=== PATIENT | female | born 1945 | race Caucasian/White ===

== ENCOUNTER 2022-08-21 12:24 | Inpatient (IN) | payer MEDICARE ==
[2022-08-21 13:22] LABS: Basophils % (A) 0 %; Eosinophils # (A) 0.6 k/uL (0-0.7); Eosinophils % (A) 8 %; HCT 37.3 % (34.0-46.0); HGB 12.4 gm/dL (11.4-16.0); Lymphocytes # (A) 1.7 k/uL (1.0-4.8); Lymphocytes % (A) 21 %; MCHC 33.3 g/dL (31.0-37.0); MCV 93.2 fL (80.0-100.0); Mean Platelet Volume 7.6; Monocytes # (A) 0.5 k/uL (0-1.0); Monocytes % (A) 7 %; Neutrophils # (A) 4.9 k/uL (1.3-7.7); Neutrophils % (A) 62 %; Platelet Count 427 k/uL (150-450); RBC 4.01 m/uL (3.80-5.40); RDW 12.1 % (11.5-15.5); WBC 7.8 k/uL (3.8-10.6)
--- NOTE | 2022-08-21 13:29 | XR ---
EXAMINATION TYPE: XR chest 2V DATE OF EXAM: 08/21/2022 1:22 PM COMPARISON: Chest radiographs from 02/22/2020 TECHNIQUE: XR chest 2V Frontal and lateral views of the chest. CLINICAL INDICATION:Female, 77 years old with history of sob; FINDINGS: Lungs/Pleura: Prominent interstitial lung markings are seen scattered throughout the lungs with chani ening of the diaphragm and increased lucency of the lung apices. No evidence of focal consolidation, pneumothorax or pleural effusion. Pulmonary vascularity: Unremarkable. Heart/mediastinum: Cardiomediastinal silhouette is unremarkable. Musculoskeletal: Multiple level degenerative disc disease changes seen throughout the spine. IMPRESSION: 1. No acute cardiopulmonary disease process. 2. COPD changes.
[2022-08-21 13:33] LABS: Prothrombin Time 10.2 sec (9.0-12.0)
--- NOTE | 2022-08-21 13:33 | XR ---
EXAMINATION TYPE: XR foot complete RT DATE OF EXAM: 08/21/2022 1:25 PM INDICATION: Patient age:Female; 77 years old; Reason for study: infection; COMPARISON: None TECHNIQUE: The right foot was examined in the AP, oblique, and lateral projections. FINDINGS: No evidence of any acute osseous pathology. No evidence of soft tissue swelling. Joints are preserve d. No evidence of osseous erosion to suggest osteomyelitis. No subcutaneous lucencies suggests organi zing fluid collection. IMPRESSION: 1. No evidence of acute fracture. 2. No evidence of osseous erosion to suggest osteomyelitis. No subcutaneous gas visualized.
[2022-08-21 13:35] LABS: Albumin 3.8 g/dL (3.5-5.0); C Reactive Protein 3.6 mg/dL (<1.0); Calcium 9.8 mg/dL (8.4-10.2); Magnesium 1.8 mg/dL (1.6-2.3); Potassium 4.2 mmol/L (3.5-5.1); Total Bilirubin 0.3 mg/dL (0.2-1.3); Total Protein 8.3 g/dL (6.3-8.2)
[2022-08-21] MEDS ORDERED: MORPHINE SULFATE 2 MG/ML SYRINGE IVP ONE (13:45)
[2022-08-21] MEDS ORDERED: ONDANSETRON 4 MG/2 ML VIAL IVP STA (13:45)
[2022-08-21] MEDS ORDERED: IPRATROPIUM-ALBUTEROL 3 ML NEB INHALATION STA (13:53)
--- NOTE | 2022-08-21 13:57 | ED ---
Extremity Problem HPI - General Chief complaint: Extremity Problem,Nontraumatic Stated complaint: blk toe Time Seen by Provider: 08/21/22 12:44 Source: patient, RN notes reviewed Mode of arrival: ambulatory Limitations: no limitations - History of Present Illness Initial comments: 77-year-old female presents emergency department from podiatry's office for evaluation of necrotic toes. Patient has been having issues with her foot states that she has seen podiatry has small black dot on her big toe of her right foot but states has now worsened to majority of her first digit in her changes are second third. She was a former smoker. She has meant that she has shortness breath and increasing cough and cold-like symptoms. Patient is advised to come to the emergency department for admission secondary to worsening gangrene. - Related Data Allergies Allergy/AdvReac Type Severity Reaction Status Date / Time No Known Allergies Allergy Verified 08/21/22 12:35 Review of Systems ROS Statement: Those systems with pertinent positive or pertinent negative responses have been documented in the HPI. ROS Other: All systems not noted in ROS Statement are negative. Past Medical History Past Medical History: COPD, Hyperlipidemia, Hypertension, Pneumonia History of Any Multi-Drug Resistant Organisms: None Reported Past Surgical History: Joint Replacement Past Psychological History: Anxiety Smoking Status: Former smoker Past Alcohol Use History: None Reported Past Drug Use History: None Reported General Exam Limitations: no limitations General appearance: alert, in no apparent distress Head exam: Present: atraumatic, normocephalic, normal inspection Neck exam: Present: normal inspection, full ROM. Absent: tenderness, meningi smus, lymphadenopathy Respiratory exam: Present: wheezes. Absent: normal lung sounds bilaterally, respiratory distress, rales, rhonchi, stridor Cardiovascular Exam: Present: regular rate, normal rhythm, normal heart sounds. Absent: systolic murmur, diastolic murmur, rubs, gallop, clicks Neurological exam: Present: alert Course Vital Signs 08/21/22 08/21/22 12:31 14:08 Temperature 97.8 F Pulse Rate 76 72 Respiratory 20 18 Rate Blood Pressure 144/78 141/85 O2 Sat by Pulse 97 95 Oximetry Medical Decision Making - Medical Decision Making Was pt. sent in by a medical professional or institution (, PA, MAINTENANCE PAINTER, urgent care, hospital, or long-term...) When possible be specific @ -Forensics Team Director Dr. Harding Did you speak to anyone other than the patient for history (EMS, parent, family, police, friend...)? What history was obtained from this source @ -Family in the room providing past medical history and recent treatment Did you review nursing and triage notes (agree or disagree)? Why? @ -I reviewed and agree with nursing and triage notes Were old charts reviewed (outside hosp., previous admission, EMS record, old EKG, old radiological studies, urgent care reports/EKG's, long-term records)? Report findings @ -No old charts were reviewed Differential Diagnosis (chest pain, altered mental status, abdominal pain women, abdominal pain men, vaginal bleeding, weakness, fever, dyspnea, syncope, headache, dizziness, GI bleed, back pain, seizure, CVA, palpatations, mental health, musculoskeletal)? @ -Peripheral arterial disease, gangrene, osteomyelitis, cellulitis EKG interpreted by me (3pts min.). @ -None X-rays interpreted by me (1pt min.). @ -Chest x-ray 2 view no acute cardiopulmonary process, COPD changes, X-ray foot right no evidence of osteomyelitis no acute fracture CT interpreted by me (1pt min.). @ -None done U/S interpreted by me (1pt. min.). @ -None done What testing was considered but not performed or refused? (CT, X-rays, U/S, labs)? Why? @ -None What meds were considered but not given or refused? Why? @ -None Did you discuss the management of the patient with other professionals (professionals i.e. , PA, MAINTENANCE PAINTER, lab, RT, psych nurse, social worker school, regional sales director, teacher, security police officer, wrapper caser)? Give summary @ -Dr. Garcia with vascular evaluation, consult secondary to PAD and gangrenous changes Was smoking cessation discussed for >3mins.? @ -No Was critical care preformed (if so, how long)? @ -No Were there social determinants of health that impacted care today? How? (Homelessness, low income, unemployed, alcoholism, drug addiction, transportation, low edu. Level, literacy, decrease access to med. care, penitentiary, rehab)? @ -No Was there de-escalation of care discussed even if they declined (Discuss DNR or withdrawal of care, Hospice)? DNR status @ -No What co-morbidities impacted this encounter? (DM, HTN, Smoking, COPD, CAD, Cancer, CVA, ARF, Chemo, Hep., AIDS, mental health diagnosis, sleep apnea, morbid obesity)? @ -Smoking history Was patient admitted / discharged? Hospital course, mention meds given and route, prescriptions, significant lab abnormalities, going to OR and other pertinent info. @ -Admitted secondary to PAD with gangrene changes in fair outpatient treatment with podiatry patient be admitted with consult to vascular surgery Undiagnosed new problem with uncertain prognosis? @ -No Drug Therapy requiring intensive monitoring for toxicity (Heparin, Nitro, Insulin, Cardizem)? @ -No Were any procedures done? @ -No Diagnosis/symptom? @ -PAD, gangrene Acute, or Chronic, or Acute on Chronic? @ -Acute Uncomplicated (without systemic symptoms) or Complicated (systemic symptoms)? @ -Complicated Side effects of treatment? @ -No Exacerbation, Progression, or Severe Exacerbation? @ -No Poses a threat to life or bodily function? How? (Chest pain, [place], [place], pneumonia, PE, COPD, DKA, ARF, appy, cholecystitis, CVA, Diverticulitis, Homicidal, Suicidal, threat to staff... and all critical care pts) @ -No - Lab Data Result diagrams: 08/21/22 13:05 08/21/22 13:05 Lab Results 08/21/22 08/21/22 08/21/22 Range/Units 13:05 13:05 13:05 WBC 7.8 (3.8-10.6) k/uL RBC 4.01 (3.80-5.40) m/uL Hgb 12.4 (11.4-16.0) gm/dL Hct 37.3 (34.0-46.0) % MCV 93.2 (80.0-100.0) fL MCH 31.0 (25.0-35.0) pg MCHC 33.3 (31.0-37.0) g/dL RDW 12.1 (11.5-15.5) % Plt Count 427 (150-450) k/uL MPV 7.6 Neutrophils % 62 % Lymphocytes % 21 % Monocytes % 7 % Eosinophils % 8 % Basophils % 0 % Neutrophils # 4.9 (1.3-7.7) k/uL Lymphocytes # 1.7 (1.0-4.8) k/uL Monocytes # 0.5 (0-1.0) k/uL Eosinophils # 0.6 (0-0.7) k/uL Basophils # 0.0 (0-0.2) k/uL PT 10.2 (9.0-12.0) sec INR 1.0 (<1.2) APTT 32.0 H (22.0-30.0) sec Sodium 134 L (137-145) mmol/L Potassium 4.2 (3.5-5.1) mmol/L Chloride 97 L (98-107) mmol/L Carbon Dioxide 27 (22-30) mmol/L Anion Gap 10 mmol/L BUN 11 (7-17) mg/dL Creatinine 0.76 (0.52-1.04) mg/dL Est GFR (CKD-EPI)AfAm 89 (>60 ml/min/1.73 sqM) Est GFR (CKD-EPI)NonAf 77 (>60 ml/min/1.73 sqM) Glucose 105 H (74-99) mg/dL Plasma Lactic Acid Lloyd (0.7-2.0) mmol/L Calcium 9.8 (8.4-10.2) mg/dL Magnesium 1.8 (1.6-2.3) mg/dL Total Bilirubin 0.3 (0.2-1.3) mg/dL AST 26 (14-36) U/L ALT 14 (4-34) U/L Alkaline Phosphatase 112 (38-126) U/L C-Reactive Protein 3.6 H (<1.0) mg/dL Total Protein 8.3 H (6.3-8.2) g/dL Albumin 3.8 (3.5-5.0) g/dL 08/21/22 Range/Units 13:05 WBC (3.8-10.6) k/uL RBC (3.80-5.40) m/uL Hgb (11.4-16.0) gm/dL Hct (34.0-46.0) % MCV (80.0-100.0) fL MCH (25.0-35.0) pg MCHC (31.0-37.0) g/dL RDW (11.5-15.5) % Plt Count (150-450) k/uL MPV Neutrophils % % Lymphocytes % % Monocytes % % Eosinophils % % Basophils % % Neutrophils # (1.3-7.7) k/uL Lymphocytes # (1.0-4.8) k/uL Monocytes # (0-1.0) k/uL Eosinophils # (0-0.7) k/uL Basophils # (0-0.2) k/uL PT (9.0-12.0) sec INR (<1.2) APTT (22.0-30.0) sec Sodium (137-145) mmol/L Potassium (3.5-5.1) mmol/L Chloride (98-107) mmol/L Carbon Dioxide (22-30) mmol/L Anion Gap mmol/L BUN (7-17) mg/dL Creatinine (0.52-1.04) mg/dL Est GFR (CKD-EPI)AfAm (>60 ml/min/1.73 sqM) Est GFR (CKD-EPI)NonAf (>60 ml/min/1.73 sqM) Glucose (74-99) mg/dL Plasma Lactic Acid Lloyd 1.0 (0.7-2.0) mmol/L Calcium (8.4-10.2) mg/dL Magnesium (1.6-2.3) mg/dL Total Bilirubin (0.2-1.3) mg/dL AST (14-36) U/L ALT (4-34) U/L Alkaline Phosphatase (38-126) U/L C-Reactive Protein (<1.0) mg/dL Total Protein (6.3-8.2) g/dL Albumin (3.5-5.0) g/dL Disposition Clinical Impression: Gangrene of toe of right foot, PAD (peripheral artery disease) Disposition: ADMITTED IP TO THIS HOSP Condition: Fair Referrals: Yajaira Freeman MD [Primary Care Provider] - 1-2 days Time of Disposition: 13:57
[2022-08-21] MEDS ORDERED: NALOXONE 0.4 MG/ML 1 ML VIAL IV PRN (14:13)
[2022-08-21] MEDS ORDERED: ACETAMINOPHEN TAB 325 MG TAB PO PRN (14:13)
[2022-08-21] MEDS: IPRATROPIUM-ALBUTEROL 3 ML NEB INHALATION SCH ×2 (15:27→20:08)
[2022-08-21 16:27] LABS: Erythrocyte Sedimentation Rate 102 mm/hr (0-20)
[2022-08-21] MEDS ORDERED: NON FORMULARY DRUG (Umeclidinium Brm/Vilanterol Tr [Anoro Ellipta 62.5-25 Mcg Inh] 1 EACH INHALATION PRN (16:39)
[2022-08-21] MEDS ORDERED: ONDANSETRON ODT 4 MG TAB PO PRN (16:39)
[2022-08-21] MEDS: MULTIVITAMINS, THERA 1 EACH TAB PO SCH (17:42)
[2022-08-21] MEDS: METOCLOPRAMIDE 10 MG TAB PO SCH (17:42)
[2022-08-21] MEDS: ATORVASTATIN 40 MG TAB PO SCH (20:05)
[2022-08-21] MEDS: HYDROcodone/APAP 5-325MG 1 EACH TAB PO PRN (21:37)
[2022-08-21] MEDS: ALPRAZolam 0.25 MG TAB PO PRN (23:24)
[2022-08-22] MEDS: IPRATROPIUM-ALBUTEROL 3 ML NEB INHALATION SCH ×3 (00:59→08:35)
[2022-08-22] MEDS: HYDROcodone/APAP 5-325MG 1 EACH TAB PO PRN ×3 (01:29→22:41)
[2022-08-22] MEDS: METOCLOPRAMIDE 10 MG TAB PO SCH ×2 (08:25→17:45)
[2022-08-22] MEDS: FORMOTEROL FUMARATE 20 MCG/2 ML NEBU INHALATION SCH ×2 (08:35→20:00)
[2022-08-22 08:55] LABS: Basophils # (A) 0.06 X 10*3/uL (0.00-0.10); Basophils % (A) 0.7 %; Eosinophils # (A) 0.85 X 10*3/uL (0.04-0.35); Eosinophils % (A) 10.5 %; HCT 35.2 % (37.2-46.3); HGB 11.1 g/dL (12.0-15.0); Immature Grans, Automated 0.9 %; Lymphocytes # (A) 2.38 X 10*3/uL (0.90-5.00); Lymphocytes % (A) 29.4 %; MCH 30.6 pg (27.0-32.0); MCHC 31.5 g/dL (32.0-37.0); Mean Platelet Volume 10.7 fL (9.5-12.2); Monocytes # (A) 0.82 X 10*3/uL (0.20-1.00); Monocytes % (A) 10.1 %; NRBC Per 100 WBC 0 /100 WBCS (0.0-0.0); Neutrophils # (A) 3.92 X 10*3/uL (1.80-7.70); Neutrophils % (A) 48.4 %; Platelet Count 401 X 10*3/uL (140-440); RBC 3.63 X 10*6/uL (4.10-5.20); RDW 12.3 % (11.5-14.5)
[2022-08-22] MEDS: ONDANSETRON 4 MG/2 ML VIAL IVP PRN ×2 (08:55→16:43)
[2022-08-22] MEDS ORDERED: NON FORMULARY DRUG (Losartan/Hydrochlorothiazide [Hyzaar 100-12.5 Tablet] 1 EACH Tablet) PO SCH (09:00)
--- NOTE | 2022-08-22 09:26 | P.HPIM ---
History of Present Illness H&P Date: 08/21/22 Leanne Good, is a 77-year-old female patient of Dr. 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 Patient has reported that she's been dealing with issues with her foot for some time but has increased to her second and third toe over the past few months. Patient has past medical history of ex-smoker, COPD, hyperlipidemia, hypertension and pneumonia. Chest x-ray completed showing no acute cardiopulmonary disease COPD changes. Foot x-ray completed showing no evidence of acute fracture no evidence of osseous erosion to suggest osteomyelitis. Current vital signs temp 97.8, heart rate 59, respiratory 18, blood pressure 108/56 with pulse ox 93% on room air. At this time patient will be admitted patient started on IV kefzol. Vascular and infectious disease services will be consulted. Blood culture ordered Review of Systems Please refer to HPI otherwise unremarkable Past Medical History Past Medical History: COPD, Hyperlipidemia, Hypertension, Pneumonia History of Any Multi-Drug Resistant Organisms: None Reported Past Surgical History: Joint Replacement Past Psychological History: Anxiety Smoking Status: Former smoker Past Alcohol Use History: None Reported Past Drug Use History: None Reported Medications and Allergies Home Medications Medication Instructions Recorded Confirmed Type ALPRAZolam [Xanax] 0.25 mg PO BID PRN 08/21/22 08/21/22 History Albuterol Nebulized [Ventolin 2.5 mg INHALATION RT-Q6H PRN 08/21/22 08/21/22 History Nebulized] Albuterol Sulfate [Albuterol 1 puff PO RT-Q4H PRN 08/21/22 08/21/22 History Sulfate Hfa] Losartan/Hydrochlorothiazide 1 tab PO DAILY 08/21/22 08/21/22 History [Hyzaar 100-12.5 Tablet] Magnesium Oxide [Mag-Ox] 400 mg PO DAILY@1200 08/21/22 08/21/22 History Metoclopramide [Reglan] 10 mg PO AC-BID 08/21/22 08/21/22 History Mv-Min/Folic/Vit K/[id number] 1 tab PO AC-SUPPER 08/21/22 08/21/22 History [Alive Women's 50 Plus Tablet] Omeprazole [PriLOSEC] 40 mg PO DAILY 08/21/22 08/21/22 History Ondansetron Odt [Zofran Odt] 4 mg PO Q6H PRN 08/21/22 08/21/22 History Rosuvastatin [Crestor] 20 mg PO HS 08/21/22 08/21/22 History Umeclidinium Brm/Vilanterol Tr 1 puff INHALATION RT-DAILY PRN 08/21/22 08/21/22 History [Anoro Ellipta 62.5-25 Mcg INH] rOPINIRole HCL [Requip] 0.5 mg PO DAILY 08/21/22 08/21/22 History rOPINIRole HCL [Requip] 1 mg PO HS 08/21/22 08/21/22 History Allergies Allergy/AdvReac Type Severity Reaction Status Date / Time No Known Allergies Allergy Verified 08/21/22 15:33 Physical Exam Vitals: Vital Signs Temp Pulse Resp BP Pulse Ox 08/21/22 15:36 66 08/21/22 15:27 63 08/21/22 14:08 72 18 141/85 95 08/21/22 12:31 97.8 F 76 20 144/78 97 Intake and Output 08/21/22 08/21/22 08/21/22 06:59 14:59 22:59 Other: Weight 58.513 kg Head normocephalic Neck supple Lungs clear to auscultation bilaterally no wheezing or crackles Heart regular rate and rhythm S1-S2, no rub or gallop Abdomen is soft nontender nondistended positive bowel sounds no hepatosplenomegaly Extremities no edema. Right greater toe along with second and third digit gangrenous Neuro alert and orientated to 3 Results CBC & Chem 7: 08/22/22 05:58 08/21/22 13:05 Labs: Abnormal Lab Results - Last 24 Hours (Table) 08/21/22 08/21/22 08/21/22 Range/Units 13:05 13:05 13:05 ESR 102 H (0-20) mm/hr APTT 32.0 H (22.0-30.0) sec Sodium 134 L (137-145) mmol/L Chloride 97 L (98-107) mmol/L Glucose 105 H (74-99) mg/dL C-Reactive Protein 3.6 H (<1.0) mg/dL Total Protein 8.3 H (6.3-8.2) g/dL Assessment and Plan Assessment: 1. 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 2. History of peripheral arterial disease 3. Ex-smoker 4. History of COPD 5. History of hyperlipidemia 6. History of essential hypertension 7. History of pneumonia DVT prophylaxis SCDs due to possible surgical procedure and GI prophylaxis Protonix Maintained on IV antibiotics Vascular and infectious disease service is consulted blood Culture and repeat labs ordered Time with Patient: Greater than 30 (Greater than 60% of the total time spent in counseling and coordination of care)
--- NOTE | 2022-08-22 09:27 | P.PN ---
Subjective Progress Note Date: 08/22/22 Leanne Good, is a 77-year-old female patient of Dr. 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 Patient has reported that she's been dealing with issues with her foot for some time but has increased to her second and third toe over the past few months. Patient has past medical history of ex-smoker, COPD, hyperlipidemia, hypertension and pneumonia. Chest x-ray completed showing no acute cardiopulmonary disease COPD changes. Foot x-ray completed showing no evidence of acute fracture no evidence of osseous erosion to suggest osteomyelitis. Current vital signs temp 97.8, heart rate 59, respiratory 18, blood pressure 108/56 with pulse ox 93% on room air. At this time patient will be admitted patient started on IV kefzol. Vascular and infectious disease services will be consulted. Blood culture ordered On 08/22/2022 patient is alert and oriented 3. Patient having some nausea Zofran ordered. Awaiting vascular consult ultrasound of lower extremity is ordered. Patient denies chest pain or shortness breath. Patient denies any urinary burning or frequency. Patient remains on IV antibiotics Objective - Vital Signs Vital signs: Vital Signs Temp 98.5 F 08/22/22 09:00 Pulse 59 L 08/22/22 07:19 Resp 18 08/22/22 07:19 BP 108/56 08/22/22 07:19 Pulse Ox 93 L 08/22/22 07:19 FiO2 Intake & Output 08/21/22 08/22/22 08/22/22 18:59 06:59 18:59 Weight 58.513 kg Other: # Voids 1 1 - Exam Head normocephalic Neck supple Lungs clear to auscultation bilaterally no wheezing or crackles Heart regular rate and rhythm S1-S2, no rub or gallop Abdomen is soft nontender nondistended positive bowel sounds no hepatosplenomegaly Extremities no edema. Right greater toe along with second and third digit gangrenous Neuro alert and orientated to 3 - Labs CBC & Chem 7: 08/22/22 05:58 08/21/22 13:05 Labs: Abnormal Lab Results - Last 24 Hours (Table) 08/21/22 08/21/22 08/21/22 Range/Units 13:05 13:05 13:05 RBC (4.10-5.20) X 10*6/uL Hgb (12.0-15.0) g/dL Hct (37.2-46.3) % MCHC (32.0-37.0) g/dL Immature Gran # (0.00-0.04) X 10*3/uL Eosinophils # (0.04-0.35) X 10*3/uL ESR 102 H (0-20) mm/hr APTT 32.0 H (22.0-30.0) sec Sodium 134 L (137-145) mmol/L Chloride 97 L (98-107) mmol/L Glucose 105 H (74-99) mg/dL C-Reactive Protein 3.6 H (<1.0) mg/dL Total Protein 8.3 H (6.3-8.2) g/dL 08/22/22 Range/Units 05:58 RBC 3.63 L (4.10-5.20) X 10*6/uL Hgb 11.1 L (12.0-15.0) g/dL Hct 35.2 L (37.2-46.3) % MCHC 31.5 L (32.0-37.0) g/dL Immature Gran # 0.07 H (0.00-0.04) X 10*3/uL Eosinophils # 0.85 H (0.04-0.35) X 10*3/uL ESR (0-20) mm/hr APTT (22.0-30.0) sec Sodium (137-145) mmol/L Chloride (98-107) mmol/L Glucose (74-99) mg/dL C-Reactive Protein (<1.0) mg/dL Total Protein (6.3-8.2) g/dL Assessment and Plan Assessment: 1. 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 2. History of peripheral arterial disease 3. Ex-smoker 4. History of COPD 5. History of hyperlipidemia 6. History of essential hypertension 7. History of pneumonia DVT prophylaxis SCDs due to possible surgical procedure and GI prophylaxis Protonix Maintained on IV antibiotics Vascular and infectious disease service is consulted blood Culture and repeat labs ordered
[2022-08-22 09:50] LABS: ALT 9 U/L (8-44); AST 18 U/L (13-35); African American GFR (CKD) 83.6 (60.0-200.0); Albumin 3.2 g/dL (3.8-4.9); Albumin/Globulin Ratio 0.86 (1.60-3.17); Alkaline Phosphatase 102 U/L (41-126); Blood Urea Nitrogen 8.4 mg/dL (9.0-27.0); Calcium 9.5 mg/dL (8.7-10.3); Carbon Dioxide 26.3 mmol/L (20.0-27.5); Chloride 98 mmol/L (96-109); Globulin 3.7 g/dL (1.6-3.3); Glucose 85 mg/dL (70-110); Non-African American GFR(CKD) 72.1 (60.0-200.0); Potassium 4.2 mmol/L (3.5-5.5); Sodium 134 mmol/L (135-145); Total Bilirubin <0.15 mg/dL (0.30-1.20); Total Protein 6.9 g/dL (6.2-8.2)
[2022-08-22 10:08] VITALS: BMI 19.0
--- NOTE | 2022-08-22 10:38 | P.GSCN ---
History of Present Illness Consult date: 08/22/22 Reason for Consult: Gangrene toe Requesting physician: Jovan Edwards History of present illness: A pleasant 77-year-old female who presented to the emergency department directed by her manager of learning for concerns of bone gangrene toe. Patient states her right great toe started turning black about 4 days ago. She lost her toenail prior to that. She denies any injury to her her toe or foot. Denies any pain with ambul ation in her legs. Denies any previous history of peripheral arterial disease. Does state that she has pain when you touch the toe, no drainage noted. She denies any fever, chills, body aches, abdominal pain, nausea or vomiting. She has a chronic cough from her COPD. Chronic medical conditions include hypertension, hyper lipidemia, former smoker, and COPD. Vascular surgery was consulted for gangrene toe. Right foot x-ray shows no evidence of acute fracture. No evidence of osseous erosion to suggest osteomyelitis. No subcutaneous gas visualized. Review of Systems A 14 point review systems was completed all pertinent positives and negatives as stated in the HPI. Past Medical History Past Medical History: COPD, Hyperlipidemia, Hypertension, Pneumonia Additional Past Medical History / Comment(s): Parkinsons History of Any Multi-Drug Resistant Organisms: None Reported Past Surgical History: Joint Replacement Additional Past Surgical History / Comment(s): right hip replacement Past Psychological History: Anxiety Smoking Status: Former smoker Past Alcohol Use History: None Reported Past Drug Use History: None Reported Medications and Allergies Home Medications Medication Instructions Recorded Confirmed Type ALPRAZolam [Xanax] 0.25 mg PO BID PRN 08/21/22 08/21/22 History Albuterol Nebulized [Ventolin 2.5 mg INHALATION RT-Q6H PRN 08/21/22 08/21/22 History Nebulized] Albuterol Sulfate [Albuterol 1 puff PO RT-Q4H PRN 08/21/22 08/21/22 History Sulfate Hfa] Losartan/Hydrochlorothiazide 1 tab PO DAILY 08/21/22 08/21/22 History [Hyzaar 100-12.5 Tablet] Magnesium Oxide [Mag-Ox] 400 mg PO DAILY@1200 08/21/22 08/21/22 History Metoclopramide [Reglan] 10 mg PO AC-BID 08/21/22 08/21/22 History Mv-Min/Folic/Vit K/[id number]/[id number] 1 tab PO AC-SUPPER 08/21/22 08/21/22 History [Alive Women's 50 Plus Tablet] Omeprazole [PriLOSEC] 40 mg PO DAILY 08/21/22 08/21/22 History Ondansetron Odt [Zofran Odt] 4 mg PO Q6H PRN 08/21/22 08/21/22 History Rosuvastatin [Crestor] 20 mg PO HS 08/21/22 08/21/22 History Umeclidinium Brm/Vilanterol Tr 1 puff INHALATION RT-DAILY PRN 08/21/22 08/21/22 History [Anoro Ellipta 62.5-25 Mcg INH] rOPINIRole HCL [Requip] 0.5 mg PO DAILY 08/21/22 08/21/22 History rOPINIRole HCL [Requip] 1 mg PO HS 08/21/22 08/21/22 History Allergies Allergy/AdvReac Type Severity Reaction Status Date / Time No Known Allergies Allergy Verified 08/21/22 15:33 Surgical - Exam Vital Signs Temp Pulse Resp BP Pulse Ox 97.8 F 76 20 144/78 97 08/21/22 12:31 08/21/22 12:31 08/21/22 12:31 08/21/22 12:31 08/21/22 12:31 General appearance: The patient is alert, oriented, appears in no acute distress. HET: Head is normocephalic and atraumatic. Pupils are equal and reactive. Neck: Supple. Heart: Regular. Lungs: Equal expansion, normal respiratory effort. Abdomen: Soft, nontender, nondistended. Extremities: Palpable bilateral femoral and popliteal pulses. Right great toe with dry gangrene, no toenail, tender to the touch. Nonpalpable DP/PT pulses. Left foot with palpable PT and DP pulse. Sensorimotor intact. Neurological: No focal deficits. Alert and oriented. Results - Labs 08/22/22 05:58 08/22/22 05:58 Abnormal Lab Results - Last 24 Hours (Table) 08/21/22 08/21/22 08/21/22 Range/Units 13:05 13:05 13:05 ESR 102 H (0-20) mm/hr APTT 32.0 H (22.0-30.0) sec Sodium 134 L (137-145) mmol/L Chloride 97 L (98-107) mmol/L Glucose 105 H (74-99) mg/dL C-Reactive Protein 3.6 H (<1.0) mg/dL Total Protein 8.3 H (6.3-8.2) g/dL Diabetes panel 08/21/22 Range/Units 13:05 Sodium 134 L (137-145) mmol/L Potassium 4.2 (3.5-5.1) mmol/L Chloride 97 L (98-107) mmol/L Carbon Dioxide 27 (22-30) mmol/L BUN 11 (7-17) mg/dL Creatinine 0.76 (0.52-1.04) mg/dL Glucose 105 H (74-99) mg/dL Calcium 9.8 (8.4-10.2) mg/dL AST 26 (14-36) U/L ALT 14 (4-34) U/L Alkaline Phosphatase 112 (38-126) U/L Total Protein 8.3 H (6.3-8.2) g/dL Albumin 3.8 (3.5-5.0) g/dL Calcium panel 08/21/22 Range/Units 13:05 Calcium 9.8 (8.4-10.2) mg/dL Albumin 3.8 (3.5-5.0) g/dL Pituitary panel 08/21/22 Range/Units 13:05 Sodium 134 L (137-145) mmol/L Potassium 4.2 (3.5-5.1) mmol/L Chloride 97 L (98-107) mmol/L Carbon Dioxide 27 (22-30) mmol/L BUN 11 (7-17) mg/dL Creatinine 0.76 (0.52-1.04) mg/dL Glucose 105 H (74-99) mg/dL Calcium 9.8 (8.4-10.2) mg/dL Adrenal panel 08/21/22 Range/Units 13:05 Sodium 134 L (137-145) mmol/L Potassium 4.2 (3.5-5.1) mmol/L Chloride 97 L (98-107) mmol/L Carbon Dioxide 27 (22-30) mmol/L BUN 11 (7-17) mg/dL Creatinine 0.76 (0.52-1.04) mg/dL Glucose 105 H (74-99) mg/dL Calcium 9.8 (8.4-10.2) mg/dL Total Bilirubin 0.3 (0.2-1.3) mg/dL AST 26 (14-36) U/L ALT 14 (4-34) U/L Alkaline Phosphatase 112 (38-126) U/L Total Protein 8.3 H (6.3-8.2) g/dL Albumin 3.8 (3.5-5.0) g/dL Assessment and Plan Assessment: 1. Dry gangrene right great toe 2. Former smoker 3. COPD 4. Hypertension 5. Hyperlipidemia Plan: 1. Arterial ultrasound order bilateral lower extremities 2. Continue supportive care 3. Further recommendations forthcoming based on CODI, patient likely will need amputation however need to evaluate arterial flow for healing. Thank you for this consultation, we will continue to follow. The impression and plan of care has been dictated as directed. Dr. Platt I performed a history and examination of this patient, discussed the same with the dictator. I agree with the dictator's note ,documented as a scribe. Any additional findings or plans will be noted.
[2022-08-22] MEDS: ALPRAZolam 0.25 MG TAB PO PRN ×3 (10:41→20:45)
[2022-08-22] MEDS: hydroCHLOROthiazide 12.5 MG CAP PO SCH (10:41)
[2022-08-22] MEDS: PANTOPRAZOLE 40 MG TABLET PO SCH (10:42)
[2022-08-22] MEDS: LOSARTAN 50 MG TAB PO SCH (10:42)
[2022-08-22] MEDS ORDERED: LACTULOSE 20 GM/30 ML CUP PO ONE (11:09)
[2022-08-22] MEDS: MAGNESIUM OXIDE 400 MG TAB PO SCH (11:40)
[2022-08-22] MEDS ORDERED: NA PHOS,M-B/NA PHOS,DI-BA 133 ML ENEMA RECTAL ONE (17:23)
[2022-08-22] MEDS: MULTIVITAMINS, THERA 1 EACH TAB PO SCH (17:45)
[2022-08-22] MEDS: ATORVASTATIN 40 MG TAB PO SCH (20:45)
--- NOTE | 2022-08-22 22:26 | P.CONS ---
History of Present Illness - Reason for Consult Consult date: 08/22/22 Gangrenous toe Requesting physician: Bret Garcia - Chief Complaint Right big toe discoloration x few days - History of Present Illness Patient is a 77-year-old female with a past medical history significant for hypertension hyperlipidemia COPD and anxiety did have a previous history of smoking presenting to the hospital for evaluation of right big toe gangrene apparently the patient recently did have trimming of the toenails as well as podiatry subsequently patient was noticed to having increasing discoloration especially of the right great toe which is becoming more dry and black patient did have some frontal aching pain mild to moderate intensity with no radiation and some surrounding redness, denies any foul-smelling drainage or high-grade fever with the symptoms the patient was evaluated on arrival to the ER patient was afebrile and no fever has been recorded subsequently patient did have a normal white count kidney function has been normal liver enzymes are normal CRP was elevated at 3.6 patient did have x-ray of the foot no evidence of acute fracture no evidence of bony erosion to suggest osteomyelitis patient was admitted to hospital for necrotic right big toe and concern for secondary cellulitis patient has been evaluated by vascular surgery this morning and have ordered arterial ultrasound infectious disease was consulted for further management of antibiotic therapy Review of Systems Positive point and negatives has been mentioned in the HPI, complete review of systems was performed and all other systems are negative Past Medical History Past Medical History: COPD, Hyperlipidemia, Hypertension, Pneumonia Additional Past Medical History / Comment(s): Parkinsons History of Any Multi-Drug Resistant Organisms: None Reported Past Surgical History: Joint Replacement Additional Past Surgical History / Comment(s): right hip replacement Past Psychological History: Anxiety Smoking Status: Former smoker Past Alcohol Use History: None Reported Past Drug Use History: None Reported Medications and Allergies Home Medications Medication Instructions Recorded Confirmed Type ALPRAZolam [Xanax] 0.25 mg PO BID PRN 08/21/22 08/21/22 History Albuterol Nebulized [Ventolin 2.5 mg INHALATION RT-Q6H PRN 08/21/22 08/21/22 History Nebulized] Albuterol Sulfate [Albuterol 1 puff PO RT-Q4H PRN 08/21/22 08/21/22 History Sulfate Hfa] Losartan/Hydrochlorothiazide 1 tab PO DAILY 08/21/22 08/21/22 History [Hyzaar 100-12.5 Tablet] Magnesium Oxide [Mag-Ox] 400 mg PO DAILY@1200 08/21/22 08/21/22 History Metoclopramide [Reglan] 10 mg PO AC-BID 08/21/22 08/21/22 History Mv-Min/Folic/Vit K/Lut/[id number] 1 tab PO AC-SUPPER 08/21/22 08/21/22 History [Alive Women's 50 Plus Tablet] Omeprazole [PriLOSEC] 40 mg PO DAILY 08/21/22 08/21/22 History Ondansetron Odt [Zofran ODT] 4 mg PO Q6H PRN 08/21/22 08/21/22 History Rosuvastatin [Crestor] 20 mg PO HS 08/21/22 08/21/22 History Umeclidinium Brm/Vilanterol Tr 1 puff INHALATION RT-DAILY PRN 08/21/22 08/21/22 History [Anoro Ellipta 62.5-25 Mcg INH] rOPINIRole HCL [Requip] 0.5 mg PO DAILY 08/21/22 08/21/22 History rOPINIRole HCL [Requip] 1 mg PO HS 08/21/22 08/21/22 History Aspirin 81 mg PO DAILY tab 08/26/22 Rx Cephalexin [Keflex] 500 mg PO Q8HR 1 Days #3 cap 08/26/22 Rx HYDROcodone/APAP 5-325MG [[place] 1 each PO Q4HR PRN tab 08/26/22 Rx 5-325] Allergies Allergy/AdvReac Type Severity Reaction Status Date / Time No Known Allergies Allergy Verified 08/21/22 15:33 Physical Exam Vitals: Vital Signs Temp Pulse Pulse Resp BP BP Pulse Ox 08/22/22 11:57 98.2 F 82 20 92/54 90 L 08/22/22 09:00 98.5 F 08/22/22 07:19 97.8 F 59 L 18 108/56 93 L 08/22/22 01:18 97.9 F 63 14 96/56 92 L 08/21/22 20:21 70 08/21/22 20:08 68 08/21/22 18:06 97.5 F L 75 18 160/75 98 08/21/22 17:35 62 18 135/84 96 08/21/22 15:36 66 08/21/22 15:27 63 08/21/22 14:08 72 18 141/85 95 Intake and Output 08/21/22 08/22/22 08/22/22 22:59 06:59 14:59 Other: # Voids 0 1 Weight 58.513 kg 58.513 kg GENERAL DESCRIPTION: Elderly female lying in bed, no distress. No tachypnea or accessory muscle of respiration use. HEENT: Shows Pallor , no scleral icterus. Oral mucous membrane is dry. No pharyngeal erythema or thrush NECK: Trachea central, no thyromegaly. LUNGS: Unlabored breathing. Clear to auscultation anteriorly. No wheeze or crackle. HEART: S1, S2, regular rate and rhythm. No loud murmur ABDOMEN: Soft, no tenderness , guarding or rigidity, no organomegaly EXTREMITIES: Right big toe tip did show necrotic changes minimal surrounding redness no foul-smelling drainage SKIN: No rash, no masses palpable. NEUROLOGICAL: The patient is awake, alert, oriented x3, mood and affect normal. Results CBC & Chem 7: 08/25/22 06:11 08/25/22 06:11 Labs: Abnormal Lab Results - Last 24 Hours (Table) 08/21/22 08/21/22 08/21/22 Range/Units 13:05 13:05 13:05 RBC (4.10-5.20) X 10*6/uL Hgb (12.0-15.0) g/dL Hct (37.2-46.3) % MCHC (32.0-37.0) g/dL Immature Gran # (0.00-0.04) X 10*3/uL Eosinophils # (0.04-0.35) X 10*3/uL ESR 102 H (0-20) mm/hr APTT 32.0 H (22.0-30.0) sec Sodium 134 L (137-145) mmol/L Chloride 97 L (98-107) mmol/L Anion Gap (10.00-18.00) mmol/L BUN (9.0-27.0) mg/dL BUN/Creatinine Ratio (12.00-20.00) Ratio Glucose 105 H (74-99) mg/dL Total Bilirubin (0.30-1.20) mg/dL C-Reactive Protein 3.6 H (<1.0) mg/dL Total Protein 8.3 H (6.3-8.2) g/dL Albumin (3.8-4.9) g/dL Globulin (1.6-3.3) g/dL Albumin/Globulin Ratio (1.60-3.17) g/dL 08/22/22 08/22/22 Range/Units 05:58 05:58 RBC 3.63 L (4.10-5.20) X 10*6/uL Hgb 11.1 L (12.0-15.0) g/dL Hct 35.2 L (37.2-46.3) % MCHC 31.5 L (32.0-37.0) g/dL Immature Gran # 0.07 H (0.00-0.04) X 10*3/uL Eosinophils # 0.85 H (0.04-0.35) X 10*3/uL ESR (0-20) mm/hr APTT (22.0-30.0) sec Sodium 134 L (137-145) mmol/L Chloride (98-107) mmol/L Anion Gap 9.70 L (10.00-18.00) mmol/L BUN 8.4 L (9.0-27.0) mg/dL BUN/Creatinine Ratio 10.50 L (12.00-20.00) Ratio Glucose (74-99) mg/dL Total Bilirubin <0.15 L (0.30-1.20) mg/dL C-Reactive Protein (<1.0) mg/dL Total Protein (6.3-8.2) g/dL Albumin 3.2 L (3.8-4.9) g/dL Globulin 3.7 H (1.6-3.3) g/dL Albumin/Globulin Ratio 0.86 L (1.60-3.17) g/dL Assessment and Plan (1) Gangrene of toe of right foot Status: Acute Code(s): I96 - GANGRENE, NOT ELSEWHERE CLASSIFIED SNOMED Code(s): 09927922072939930 Plan: 1patient was in the hospital with discoloration to the right big toe concerning for gangrene with mild erythema and possible component of cellulitis likely from gram-positive skin artem 2-patient to continue with cefazolin 2 g every 8 hours 3-await vascular work-up and possible amputation We will follow on clinical condition and cultures to further adjust medication if needed Thank you for this consultation we will follow the patient along with you Time with Patient: Greater than 30
[2022-08-23 05:46] LABS: Basophils % (A) 0 %; Eosinophils # (A) 0.6 k/uL (0-0.7); Eosinophils % (A) 6 %; HCT 32.2 % (34.0-46.0); HGB 10.8 gm/dL (11.4-16.0); Lymphocytes # (A) 1.3 k/uL (1.0-4.8); Lymphocytes % (A) 12 %; MCH 31.6 pg (25.0-35.0); MCHC 33.6 g/dL (31.0-37.0); MCV 94.1 fL (80.0-100.0); Mean Platelet Volume 7.4; Monocytes # (A) 0.7 k/uL (0-1.0); Monocytes % (A) 7 %; Neutrophils # (A) 7.9 k/uL (1.3-7.7); Neutrophils % (A) 74 %; Platelet Count 367 k/uL (150-450); RBC 3.42 m/uL (3.80-5.40); RDW 12.2 % (11.5-15.5); WBC 10.7 k/uL (3.8-10.6)
[2022-08-23 05:59] LABS: ALT 20 U/L (4-34); AST 57 U/L (14-36); African American GFR (CKD) 80 (>60 ml/min/1.73 sqM); Albumin 3.1 g/dL (3.5-5.0); Albumin/Globulin Ratio 0.8; Alkaline Phosphatase 142 U/L (38-126); Anion Gap 10 mmol/L; Blood Urea Nitrogen 8 mg/dL (7-17); Calcium 9.2 mg/dL (8.4-10.2); Carbon Dioxide 25 mmol/L (22-30); Chloride 95 mmol/L (98-107); Globulin 3.8 g/dL; Glucose 88 mg/dL (74-99); Non-African American GFR(CKD) 70 (>60 ml/min/1.73 sqM); Potassium 4.1 mmol/L (3.5-5.1); Sodium 130 mmol/L (137-145); Total Bilirubin 0.5 mg/dL (0.2-1.3); Total Protein 6.9 g/dL (6.3-8.2)
[2022-08-23] MEDS: HYDROcodone/APAP 5-325MG 1 EACH TAB PO PRN ×4 (06:33→23:50)
[2022-08-23] MEDS: FORMOTEROL FUMARATE 20 MCG/2 ML NEBU INHALATION SCH ×2 (08:27→19:51)
[2022-08-23] MEDS: PANTOPRAZOLE 40 MG TABLET PO SCH (08:59)
[2022-08-23] MEDS: LOSARTAN 50 MG TAB PO SCH (08:59)
[2022-08-23] MEDS: MAGNESIUM OXIDE 400 MG TAB PO SCH (08:59)
[2022-08-23] MEDS: hydroCHLOROthiazide 12.5 MG CAP PO SCH (09:01)
[2022-08-23] MEDS: METOCLOPRAMIDE 10 MG TAB PO SCH ×2 (09:01→17:13)
[2022-08-23] MEDS: MULTIVITAMINS, THERA 1 EACH TAB PO SCH (10:52)
--- NOTE | 2022-08-23 12:16 | P.GSCN ---
History of Present Illness Consult date: 08/23/22 Reason for Consult: Gangrene right great toe. History of present illness: Patient is a 77-year-old female who presented with a 4 to five-day history of dry gangrenous changes of her right great toe. She denied any known trauma to the area. This skin changes accompanied by symptoms of ischemic rest pain. Patient does not ambulate any significant degree and thus does not complain of any claudication type symptoms. She denies any previous similar symptoms. She has a history of a [id number] tobacco use and continues to smoke up until the time of her admission to the hospital. She denied any previous myocardial infarction or cerebrovascular accident. Past Medical History Past Medical History: COPD, Hyperlipidemia, Hypertension, Pneumonia Additional Past Medical History / Comment(s): Parkinsons History of Any Multi-Drug Resistant Organisms: None Reported Past Surgical History: Joint Replacement Additional Past Surgical History / Comment(s): right hip replacement Past Psychological History: Anxiety Smoking Status: Former smoker Past Alcohol Use History: None Reported Past Drug Use History: None Reported Medications and Allergies Home Medications Medication Instructions Recorded Confirmed Type ALPRAZolam [Xanax] 0.25 mg PO BID PRN 08/21/22 08/21/22 History Albuterol Nebulized [Ventolin 2.5 mg INHALATION RT-Q6H PRN 08/21/22 08/21/22 History Nebulized] Albuterol Sulfate [Albuterol 1 puff PO RT-Q4H PRN 08/21/22 08/21/22 History Sulfate Hfa] Losartan/Hydrochlorothiazide 1 tab PO DAILY 08/21/22 08/21/22 History [Hyzaar 100-12.5 Tablet] Magnesium Oxide [Mag-Ox] 400 mg PO DAILY@1200 08/21/22 08/21/22 History Metoclopramide [Reglan] 10 mg PO AC-BID 08/21/22 08/21/22 History Mv-Min/Folic/Vit K/Lut/[id number] 1 tab PO AC-SUPPER 08/21/22 08/21/22 History [Alive Women's 50 Plus Tablet] Omeprazole [PriLOSEC] 40 mg PO DAILY 08/21/22 08/21/22 History Ondansetron Odt [Zofran Odt] 4 mg PO Q6H PRN 08/21/22 08/21/22 History Rosuvastatin [Crestor] 20 mg PO HS 08/21/22 08/21/22 History Umeclidinium Brm/Vilanterol Tr 1 puff INHALATION RT-DAILY PRN 08/21/22 08/21/22 History [Anoro Ellipta 62.5-25 Mcg INH] rOPINIRole HCL [Requip] 0.5 mg PO DAILY 08/21/22 08/21/22 History rOPINIRole HCL [Requip] 1 mg PO HS 08/21/22 08/21/22 History Allergies Allergy/AdvReac Type Severity Reaction Status Date / Time No Known Allergies Allergy Verified 08/21/22 15:33 Surgical - Exam Osteopathic Statement: *. No significant issues noted on an osteopathic structural exam other than those noted in the History and Physical/Consult. Vital Signs Temp Pulse Resp BP Pulse Ox 97.8 F 76 20 144/78 97 08/21/22 12:31 08/21/22 12:31 08/21/22 12:31 08/21/22 12:31 08/21/22 12:31 Patient Seen Date: 08/23/22 Patient Seen Time: 11:00 Patient was lying in bed, alert cooperative in no apparent distress. Neck: Supple, no bruit or adenopathy noted. Heart: Regular without murmur. Lungs: Clear to auscultation bilaterally. Abdomen: Soft and otherwise benign. No palpable aneurysmal changes noted. No abdominal masses noted. Extremities: Lower extremities demonstrates femoral pulses be intact bilaterally with the popliteal, PT and DP pulses are absent bilaterally. Dry gangrenous changes of the right great toe is noted. Toes are freely movable and nontender. No evidence of deep space abscess. There is no leg edema. Ankle brachial index on the right is 0.45 and on the left 0.72. Findings of pressures and waveforms are consistent with femoral and tibial artery occlusive disease. Results - Labs 08/23/22 05:26 08/23/22 05:26 Abnormal Lab Results - Last 24 Hours (Table) 08/23/22 08/23/22 Range/Units 05:26 05:26 WBC 10.7 H (3.8-10.6) k/uL RBC 3.42 L (3.80-5.40) m/uL Hgb 10.8 L (11.4-16.0) gm/dL Hct 32.2 L (34.0-46.0) % Neutrophils # 7.9 H (1.3-7.7) k/uL Sodium 130 L (137-145) mmol/L Chloride 95 L (98-107) mmol/L AST 57 H (14-36) U/L Alkaline Phosphatase 142 H (38-126) U/L Albumin 3.1 L (3.5-5.0) g/dL Microbiology - Last 24 Hours (Table) 08/21/22 13:05 Blood Culture - Preliminary Blood 08/21/22 13:05 Blood Culture - Preliminary Blood Diabetes panel 08/23/22 Range/Units 05:26 Sodium 130 L (137-145) mmol/L Potassium 4.1 (3.5-5.1) mmol/L Chloride 95 L (98-107) mmol/L Carbon Dioxide 25 (22-30) mmol/L BUN 8 (7-17) mg/dL Creatinine 0.83 (0.52-1.04) mg/dL Glucose 88 (74-99) mg/dL Calcium 9.2 (8.4-10.2) mg/dL AST 57 H (14-36) U/L ALT 20 (4-34) U/L Alkaline Phosphatase 142 H (38-126) U/L Total Protein 6.9 (6.3-8.2) g/dL Albumin 3.1 L (3.5-5.0) g/dL Calcium panel 08/23/22 Range/Units 05:26 Calcium 9.2 (8.4-10.2) mg/dL Albumin 3.1 L (3.5-5.0) g/dL Pituitary panel 08/23/22 Range/Units 05:26 Sodium 130 L (137-145) mmol/L Potassium 4.1 (3.5-5.1) mmol/L Chloride 95 L (98-107) mmol/L Carbon Dioxide 25 (22-30) mmol/L BUN 8 (7-17) mg/dL Creatinine 0.83 (0.52-1.04) mg/dL Glucose 88 (74-99) mg/dL Calcium 9.2 (8.4-10.2) mg/dL Adrenal panel 08/23/22 Range/Units 05:26 Sodium 130 L (137-145) mmol/L Potassium 4.1 (3.5-5.1) mmol/L Chloride 95 L (98-107) mmol/L Carbon Dioxide 25 (22-30) mmol/L BUN 8 (7-17) mg/dL Creatinine 0.83 (0.52-1.04) mg/dL Glucose 88 (74-99) mg/dL Calcium 9.2 (8.4-10.2) mg/dL Total Bilirubin 0.5 (0.2-1.3) mg/dL AST 57 H (14-36) U/L ALT 20 (4-34) U/L Alkaline Phosphatase 142 H (38-126) U/L Total Protein 6.9 (6.3-8.2) g/dL Albumin 3.1 L (3.5-5.0) g/dL - Imaging Additional studies: Arterial Doppler study reviewed. 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 2: Left femoral occlusion. 3: History of tobacco abuse. Plan: We'll obtain CT angiogram of the abdominal, pelvic and lower extremity vessels. This will help delineate her vascular anatomy and thus any future intervention. We'll follow along with you. Add aspirin to therapy
--- NOTE | 2022-08-23 13:39 | P.PN ---
Subjective Progress Note Date: 08/23/22 Leanne Good, is a 77-year-old female patient of Dr. 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 Patient has reported that she's been dealing with issues with her foot for some time but has increased to her second and third toe over the past few months. Patient has past medical history of ex-smoker, COPD, hyperlipidemia, hypertension and pneumonia. Chest x-ray completed showing no acute cardiopulmonary disease COPD changes. Foot x-ray completed showing no evidence of acute fracture no evidence of osseous erosion to suggest osteomyelitis. Current vital signs temp 97.8, heart rate 59, respiratory 18, blood pressure 108/56 with pulse ox 93% on room air. At this time patient will be admitted patient started on IV kefzol. Vascular and infectious disease services will be consulted. Blood culture ordered On 08/22/2022 patient is alert and oriented 3. Patient having some nausea Zofran ordered. Awaiting vascular consult ultrasound of lower extremity is ordered. Patient denies chest pain or shortness breath. Patient denies any urinary burning or frequency. Patient remains on IV antibiotics. On 08/23/2022 patient was seen and examined on the medical floor, she is alert and oriented 3 she is complaining of pain in her right foot otherwise she denies any complaints there is no fever or chills no headache or dizziness, no chest pain no shortness of breath no cough no nausea or vomiting no abdominal pain no diarrhea no blood in the stools, no burning with urination no frequency or urgency no hematuria, patient is followed by infectious disease and vascular surgery. Continue with current management will follow closely. Objective - Vital Signs Vital signs: Vital Signs Temp 98.3 F 08/23/22 07:29 Pulse 71 08/23/22 09:03 Resp 18 08/23/22 07:29 BP 107/64 08/23/22 09:03 Pulse Ox 92 L 08/23/22 07:29 FiO2 Intake & Output 08/22/22 08/23/22 08/23/22 18:59 06:59 18:59 Intake Total 250 Balance 250 Weight 58.513 kg Intake: Oral 250 Other: # Voids 2 2 1 # Bowel Movements 1 - Exam In general patient is alert and oriented 3 in no distress Head normocephalic and atraumatic Neck supple no JVD no goiter Lungs clear to auscultation bilaterally no wheezing or crackles Heart regular rate and rhythm S1-S2, no rub or gallop Abdomen is soft nontender nondistended positive bowel sounds no hepatosplenomegaly Extremities no edema. Right greater toe along with second and third digit gangrenous Neuro no gross focal deficits - Labs CBC & Chem 7: 08/23/22 05:26 08/23/22 05:26 Labs: Abnormal Lab Results - Last 24 Hours (Table) 08/23/22 08/23/22 Range/Units 05:26 05:26 WBC 10.7 H (3.8-10.6) k/uL RBC 3.42 L (3.80-5.40) m/uL Hgb 10.8 L (11.4-16.0) gm/dL Hct 32.2 L (34.0-46.0) % Neutrophils # 7.9 H (1.3-7.7) k/uL Sodium 130 L (137-145) mmol/L Chloride 95 L (98-107) mmol/L AST 57 H (14-36) U/L Alkaline Phosphatase 142 H (38-126) U/L Albumin 3.1 L (3.5-5.0) g/dL Microbiology - Last 24 Hours (Table) 08/21/22 13:05 Blood Culture - Preliminary Blood 08/21/22 13:05 Blood Culture - Preliminary Blood Assessment and Plan Assessment: 1. 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 2. History of peripheral arterial disease 3. Ex-smoker 4. History of COPD 5. History of hyperlipidemia 6. History of essential hypertension 7. History of pneumonia DVT prophylaxis SCDs due to possible surgical procedure and GI prophylaxis Tarah nix Maintained on IV antibiotics Vascular and infectious disease service is consulted blood Culture and repeat labs ordered
[2022-08-23] MEDS: ASPIRIN 81 MG PO SCH (13:52)
[2022-08-23] MEDS: IPRATROPIUM-ALBUTEROL 3 ML NEB INHALATION PRN (14:29)
[2022-08-23] MEDS: ALPRAZolam 0.25 MG TAB PO PRN (18:24)
--- NOTE | 2022-08-23 20:16 | P.PN ---
Subjective Progress Note Date: 08/23/22 Principal diagnosis: R big toe Gangrene and cellulitis Patient is a 77-year-old female with multiple comorbidities presenting to the hospital with right big toe discoloration concerning for gangrene and possible cellulitis. On today's evaluation that is 08/23/2022 the patient denies having any fever or any chills patient is breathing comfortably no chest pain or shortness of the patient cough no abdominal pain and no worsening pain to the right big toe Objective - Vital Signs Vital signs: Vital Signs Temp 98.3 F 08/23/22 07:29 Pulse 71 08/23/22 09:03 Resp 18 08/23/22 07:29 BP 107/64 08/23/22 09:03 Pulse Ox 92 L 08/23/22 07:29 FiO2 Intake & Output 08/22/22 08/23/22 08/23/22 18:59 06:59 18:59 Intake Total 250 Balance 250 Weight 58.513 kg Intake: Oral 250 Other: # Voids 2 2 # Bowel Movements 1 - Labs CBC & Chem 7: 08/23/22 05:26 08/23/22 05:26 Labs: Abnormal Lab Results - Last 24 Hours (Table) 08/23/22 08/23/22 Range/Units 05:26 05:26 WBC 10.7 H (3.8-10.6) k/uL RBC 3.42 L (3.80-5.40) m/uL Hgb 10.8 L (11.4-16.0) gm/dL Hct 32.2 L (34.0-46.0) % Neutrophils # 7.9 H (1.3-7.7) k/uL Sodium 130 L (137-145) mmol/L Chloride 95 L (98-107) mmol/L AST 57 H (14-36) U/L Alkaline Phosphatase 142 H (38-126) U/L Albumin 3.1 L (3.5-5.0) g/dL Microbiology - Last 24 Hours (Table) 08/21/22 13:05 Blood Culture - Preliminary Blood 08/21/22 13:05 Blood Culture - Preliminary Blood Assessment and Plan Plan: 1patient was in the hospital with discoloration to the right big toe concerning for gangrene with mild erythema and possible component of cellulitis likely from gram-positive skin artem 2-Pt has been evaluated by vascular surgery and awaiting possible amputation 3-patient to continue with cefazolin 2 g every 8 hours Time with Patient: Less than 30
[2022-08-23] MEDS: ATORVASTATIN 40 MG TAB PO SCH (21:36)
[2022-08-24] MEDS: ALPRAZolam 0.25 MG TAB PO PRN ×3 (01:53→17:21)
[2022-08-24] MEDS: HYDROcodone/APAP 5-325MG 1 EACH TAB PO PRN ×3 (06:31→20:38)
[2022-08-24] MEDS: FORMOTEROL FUMARATE 20 MCG/2 ML NEBU INHALATION SCH ×2 (07:30→19:47)
[2022-08-24] MEDS: ASPIRIN 81 MG PO SCH (07:39)
[2022-08-24] MEDS: PANTOPRAZOLE 40 MG TABLET PO SCH (07:40)
[2022-08-24] MEDS: METOCLOPRAMIDE 10 MG TAB PO SCH ×2 (07:40→17:19)
--- NOTE | 2022-08-24 07:58 | CT ---
EXAMINATION TYPE: CT angio tho/abd W Run Off DATE OF EXAM: 08/23/2022 COMPARISON: HISTORY: occlusion. great toe gangrene, PAD CT DLP: 2011.40 mGycm EXAMINATION TYPE: CT angio tho/abd W Run Off DATE OF EXAM: 08/23/2022 COMPARISON: HISTORY: occlusion. great toe gangrene, PAD CT DLP: 2012.40 mGycm CONTRAST: CTA thoracic and abdominal aorta with 3-D reconstruction is performed and without and with IV Contras t, patient injected with 100 mL of Isovue 370. Contrast CTA of the thoracic and abdominal aorta with runoff of the lower extremity arterial system w as performed from the lung bases through the ankles and feet. 3-D reconstruction imaging obtained at a separate workstation. CT CHEST: COPD changes. Small focal infiltrate right lower lobe image 68 series 6. Large fixed hiatal hernia. No evidence for hilar or mediastinal adenopathy. The heart is not enlarged. Thoracic aorta: The thoracic aorta is mildly ectatic and demonstrates atheromatous change. There is n o evidence for aneurysm or dissection. Branch vessels are patent. ABDOMINAL AORTA: Normal caliber abdominal aorta with scattered calcific atheromatous changes seen. Re nal arteries, SMA, celiac artery and JOSE M are patent. Renal artery calcifications noted. Iliac vessels: Common iliac arteries are patent bilaterally. Mild scattered calcific atheromatous debbie que noted without evidence for stenosis at this time of the common, external or internal iliac arteri es Femoral arteries: The femoral arteries are patent bilaterally as is the profunda femoris bilaterally. Scattered atheromatous plaque is noted without stenosis greater than 70%. Popliteal arteries: There is short segment occlusion of the right popliteal artery see axial image 48 1 sequence 5. There is reconstitution distally. Left popliteal artery demonstrates atheromatous mcleod e with stenosis of less than 50%. Below the knee arteries: Tibial peroneal trunks are patent bilaterally. Reduced Flow anterior tibial artery and peroneal artery on the right with normal-appearing posterior tibial arteries bilaterally . Left-sided anterior tibial artery and peroneal artery appear to be patent. Nonvisualization of the anterior tibial artery at the right ankle. Limited runoff of the ankles and feet given timing of the contrast bolus. LIVER/GB-gallbladder hydrops measuring 10 cm in greatest dimension. No space-occupying hepatic lesion s are seen. PANCREAS- No significant abnormality is seen. SPLEEN- No significant abnormality is seen. ADRENALS- No significant abnormality is seen. KIDNEYS/BLADDER- No significant abnormality is seen. BOWEL- No Significant abnormality GENITAL ORGANS: No gross abnormality seen. LYMPH NODES- No greater than 1cm abdominal or pelvic lymph nodes are appreciated. OSSEOUS STRUCTURES- No significant abnormality is seen. OTHER- No significant abnormality is seen. IMPRESSION- 1. Short segment occlusion right popliteal artery with distal reconstitution. Reduced Flow anterior tibial artery and peroneal artery on the right. Nonvisualization of the anterior tibial artery at the level of the ankle. 2. Diffuse atheromatous change as noted above. 3. Gallbladder hydrops
--- NOTE | 2022-08-24 10:17 | P.PN ---
Subjective Progress Note Date: 08/24/22 Leanne Good, is a 77-year-old female patient of Dr. 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 Patient has reported that she's been dealing with issues with her foot for some time but has increased to her second and third toe over the past few months. Patient has past medical history of ex-smoker, COPD, hyperlipidemia, hypertension and pneumonia. Chest x-ray completed showing no acute cardiopulmonary disease COPD changes. Foot x-ray completed showing no evidence of acute fracture no evidence of osseous erosion to suggest osteomyelitis. Current vital signs temp 97.8, heart rate 59, respiratory 18, blood pressure 108/56 with pulse ox 93% on room air. At this time patient will be admitted patient started on IV kefzol. Vascular and infectious disease services will be consulted. Blood culture ordered On 08/22/2022 patient is alert and oriented 3. Patient having some nausea Zofran ordered. Awaiting vascular consult ultrasound of lower extremity is ordered. Patient denies chest pain or shortness breath. Patient denies any urinary burning or frequency. Patient remains on IV antibiotics. On 08/23/2022 patient was seen and examined on the medical floor, she is alert and oriented 3 she is complaining of pain in her right foot otherwise she denies any complaints there is no fever or chills no headache or dizziness, no chest pain no shortness of breath no cough no nausea or vomiting no abdominal pain no diarrhea no blood in the stools, no burning with urination no frequency or urgency no hematuria, patient is followed by infectious disease and vascular surgery. Continue with current management will follow closely. On 08/24/2022 patient is alert and oriented 3 patient is complaining of some shortness of breath. Will order chest x-ray. Tentative plans for amputation per vascular surgery. Current vital signs temp 97.8, heart rate 61, straight 17, blood pressure 91/51 with pulse ox 97% Objective - Vital Signs Vital signs: Vital Signs Temp 97.8 F 08/24/22 07:45 Pulse 61 08/24/22 07:45 Resp 17 08/24/22 07:45 BP 91/51 08/24/22 07:45 Pulse Ox 97 08/24/22 07:45 FiO2 Intake & Output 08/23/22 08/24/22 08/24/22 18:59 06:59 18:59 Intake Total 50 Balance 50 Intake: Intake, IV Titration 50 Amount ceFAZolin 2 gm In Sodium 50 Chloride 0.9% 50 ml @ 100 mls/hr IVPB Q8HR [facility] Rx# :[id number] Other: # Voids 2 1 - Exam In general patient is alert and oriented 3 in no distress Head normocephalic and atraumatic Neck supple no JVD no goiter Lungs clear to auscultation bilaterally no wheezing or crackles Heart regular rate and rhythm S1-S2, no rub or gallop Abdomen is soft nontender nondistended positive bowel sounds no hepatosplenomegaly Extremities no edema. Right greater toe along with second and third digit gangrenous Neuro no gross focal deficits - Labs CBC & Chem 7: 08/23/22 05:26 08/23/22 05:26 Labs: Microbiology - Last 24 Hours (Table) 08/21/22 13:05 Blood Culture - Preliminary Blood 08/21/22 13:05 Blood Culture - Preliminary Blood Assessment and Plan Assessment: 1. 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 2. History of peripheral arterial disease 3. Ex-smoker 4. History of COPD 5. History of hyperlipidemia 6. History of essential hypertension 7. History of pneumonia DVT prophylaxis SCDs due to possible surgical procedure and GI prophylaxis Protonix Maintained on IV antibiotics Vascular and infectious disease service is consulted blood Culture and repeat labs ordered
[2022-08-24] MEDS: LOSARTAN 50 MG TAB PO SCH (10:54)
[2022-08-24] MEDS: ALBUTEROL NEBULIZED 2.5 MG/3 ML INHALATION PRN (11:07)
[2022-08-24] MEDS: ENOXAPARIN 40 MG/0.4 ML SYRINGE SQ SCH (11:21)
[2022-08-24] MEDS: hydroCHLOROthiazide 12.5 MG CAP PO SCH (11:21)
[2022-08-24] MEDS: MAGNESIUM OXIDE 400 MG TAB PO SCH (11:26)
--- NOTE | 2022-08-24 13:23 | XR ---
EXAMINATION TYPE: XR chest 2V DATE OF EXAM: 08/24/2022 COMPARISON: 08/21/2022 HISTORY: Shortness of breath TECHNIQUE: Frontal and lateral views of the chest are obtained. FINDINGS: Scattered senescent parenchymal changes noted. Hyperinflation compatible with COPD. No evidence for infiltrate. No evidence for atelectasis. Moderate fixed hiatal hernia. Heart size is stable. Mediastinal structures are stable and grossly unremarkable. No evidence for hilar prominence. Degenerative changes dorsal spine. IMPRESSION: 1. No evidence for acute pulmonary disease.
--- NOTE | 2022-08-24 13:44 | P.PN ---
Subjective Progress Note Date: 08/24/22 Principal diagnosis: right great toe gangrene patient seen and examined. No changes overnight. States she is doing well. Denies any new pain to the foot. Denies any pain with ambulation. Objective - Vital Signs Vital signs: Vital Signs Temp 97.8 F 08/24/22 07:45 Pulse 64 08/24/22 11:17 Resp 17 08/24/22 07:45 BP 91/51 08/24/22 07:45 Pulse Ox 97 08/24/22 07:45 FiO2 Intake & Output 08/23/22 08/24/22 08/24/22 18:59 06:59 18:59 Intake Total 50 Balance 50 Intake: Intake, IV Titration 50 Amount ceFAZolin 2 gm In Sodium 50 Chloride 0.9% 50 ml @ 100 mls/hr IVPB Q8HR [facility] Rx# :[id number] Other: # Voids 2 1 - Exam non palpable dp and pt pulses bilaterally right great toe with dry gangrene at the distal aspect slow capillary refill palpable femoral pulses bilaterally - Constitutional General appearance: Present: average body habitus, cooperative - EENT Eyes: Present: PERRLA - Respiratory Respiratory: bilateral: CTA - Cardiovascular Rhythm: regular - Labs CBC & Chem 7: 08/23/22 05:26 08/23/22 05:26 Labs: Microbiology - Last 24 Hours (Table) 08/21/22 13:05 Blood Culture - Preliminary Blood 08/21/22 13:05 Blood Culture - Preliminary Blood Assessment and Plan Assessment: 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 Discussed with patient plan would be for angiogram with revascularization of the right popliteal artery and anterior tibial artery in order to get better flow to the foot- can be done as outpatient. Allow the right great toe to demarcate and will likely require amputation in the future.
[2022-08-24] MEDS: MULTIVITAMINS, THERA 1 EACH TAB PO SCH (17:19)
[2022-08-24] MEDS: IPRATROPIUM-ALBUTEROL 3 ML NEB INHALATION PRN (19:47)
[2022-08-24] MEDS: ATORVASTATIN 40 MG TAB PO SCH (20:37)
[2022-08-25] MEDS: HYDROcodone/APAP 5-325MG 1 EACH TAB PO PRN ×4 (00:32→20:46)
[2022-08-25 06:48] LABS: HCT 32.9 % (34.0-46.0); HGB 10.7 gm/dL (11.4-16.0); MCH 31.3 pg (25.0-35.0); MCHC 32.5 g/dL (31.0-37.0); MCV 96.4 fL (80.0-100.0); Mean Platelet Volume 7.7; Platelet Count 375 k/uL (150-450); RBC 3.42 m/uL (3.80-5.40); RDW 12.6 % (11.5-15.5); WBC 6.7 k/uL (3.8-10.6)
[2022-08-25 07:09] LABS: ALT 11 U/L (4-34); AST 46 U/L (14-36); African American GFR (CKD) 89 (>60 ml/min/1.73 sqM); Albumin 3.2 g/dL (3.5-5.0); Albumin/Globulin Ratio 0.8; Alkaline Phosphatase 141 U/L (38-126); Anion Gap 7 mmol/L; Blood Urea Nitrogen 10 mg/dL (7-17); Calcium 9.3 mg/dL (8.4-10.2); Carbon Dioxide 31 mmol/L (22-30); Chloride 97 mmol/L (98-107); Globulin 3.9 g/dL; Glucose 89 mg/dL (74-99); Non-African American GFR(CKD) 77 (>60 ml/min/1.73 sqM); Potassium 4.5 mmol/L (3.5-5.1); Sodium 135 mmol/L (137-145); Total Bilirubin 0.2 mg/dL (0.2-1.3); Total Protein 7.1 g/dL (6.3-8.2)
[2022-08-25 08:14] LABS: Eosinophils # (M) 0.67 k/uL (0-0.7); Lymphocytes # (M) 1.74 k/uL (1.0-4.8); Neutrophils # (M) 3.69 k/uL (1.3-7.7); Neutrophils % (M) 55 %; Nucleated Red Blood Cells 0 /100 WBC (0-0); Rouleaux Present; Total Cells Counted 100
[2022-08-25] MEDS: FORMOTEROL FUMARATE 20 MCG/2 ML NEBU INHALATION SCH ×2 (08:35→20:03)
[2022-08-25] MEDS: ALPRAZolam 0.25 MG TAB PO PRN ×2 (08:37→16:39)
[2022-08-25] MEDS: ASPIRIN 81 MG PO SCH (08:37)
[2022-08-25] MEDS: MAGNESIUM OXIDE 400 MG TAB PO SCH (08:37)
[2022-08-25] MEDS: METOCLOPRAMIDE 10 MG TAB PO SCH ×2 (08:38→17:56)
[2022-08-25] MEDS: ENOXAPARIN 40 MG/0.4 ML SYRINGE SQ SCH (08:38)
[2022-08-25] MEDS: hydroCHLOROthiazide 12.5 MG CAP PO SCH (08:38)
[2022-08-25] MEDS: PANTOPRAZOLE 40 MG TABLET PO SCH (08:38)
[2022-08-25] MEDS: LOSARTAN 50 MG TAB PO SCH (08:38)
--- NOTE | 2022-08-25 10:39 | P.PN ---
Subjective Progress Note Date: 08/25/22 Principal diagnosis: Dry gangrene, peripheral arterial disease Patient is seen and examined sitting up in bed. She remains on IV antibiotics recommended by infectious disease. Right great toe with dry gangrene, no drainage, no odor. She denies any pain in her lower extremities other than her great toe with palpation. She has been afebrile. She denies any chest pain, shortness of breath, abdominal pain, nausea, vomiting, fevers or chills. Objective - Vital Signs Vital signs: Vital Signs Temp 97.5 F L 08/25/22 07:20 Pulse 68 08/25/22 08:46 Resp 15 08/25/22 07:20 BP 137/77 08/25/22 07:20 Pulse Ox 96 08/25/22 07:20 FiO2 Intake & Output 08/24/22 08/25/22 08/25/22 18:59 06:59 18:59 Intake Total 100 350 Balance 100 350 Intake: Intake, IV Titration 100 Amount ceFAZolin 2 gm In Sodium 100 Chloride 0.9% 50 ml @ 100 mls/hr IVPB Q8HR [facility] Rx# :[id number] Oral 350 Other: # Voids 1 1 - Exam General appearance: The patient is alert, oriented, appears in no acute dis tress. HET: Head is normocephalic and atraumatic. Pupils are equal and reactive. Neck: Supple. Heart: Regular. Lungs: Equal expansion, normal respiratory effort. Abdomen: Soft, nontender, nondistended. Extremities: Bilateral nonpalpable DP PT pulses. Right great toe with dry gangrene at the distal aspect. Palpable bilateral femoral pulses. Neurological: No focal deficits. - Labs CBC & Chem 7: 08/25/22 06:11 08/25/22 06:11 Labs: Abnormal Lab Results - Last 24 Hours (Table) 08/25/22 08/25/22 Range/Units 06:11 06:11 RBC 3.42 L (3.80-5.40) m/uL Hgb 10.7 L (11.4-16.0) gm/dL Hct 32.9 L (34.0-46.0) % Sodium 135 L (137-145) mmol/L Chloride 97 L (98-107) mmol/L Carbon Dioxide 31 H (22-30) mmol/L AST 46 H (14-36) U/L Alkaline Phosphatase 141 H (38-126) U/L Albumin 3.2 L (3.5-5.0) g/dL Microbiology - Last 24 Hours (Table) 08/21/22 13:05 Blood Culture - Preliminary Blood 08/21/22 13:05 Blood Culture - Preliminary Blood Assessment and Plan Assessment: 1. 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 Right lower extremity critical limb ischemia with right great toe dry gangrene Plan: CT A with runoff reviewed showing chronic appearing occlusion of the distal popliteal artery on the right and chronic occlusive disease of tibial arteries. Recommend outpatient angiogram and revascularization of the right popliteal artery and anterior tibial artery to improve better flow to the foot. Allow right great toe to demarcate however will likely require amputation in the future. Encourage inflation. Patient is cleared from vascular surgery for discharge. Thank you for this consultation. The impression and plan of care has been dictated as directed. I performed a history and examination of this patient, discussed the same with the dictator. I agree with the dictator's note ,documented as a scribe. Any additional findings or plans will be noted.
[2022-08-25] MEDS: ALBUTEROL NEBULIZED 2.5 MG/3 ML INHALATION PRN (15:48)
--- NOTE | 2022-08-25 17:47 | P.PN ---
Subjective Progress Note Date: 08/25/22 Leanne Good, is a 77-year-old female patient of Dr. 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 Patient has reported that she's been dealing with issues with her foot for some time but has increased to her second and third toe over the past few months. Patient has past medical history of ex-smoker, COPD, hyperlipidemia, hypertension and pneumonia. Chest x-ray completed showing no acute cardiopulmonary disease COPD changes. Foot x-ray completed showing no evidence of acute fracture no evidence of osseous erosion to suggest osteomyelitis. Current vital signs temp 97.8, heart rate 59, respiratory 18, blood pressure 108/56 with pulse ox 93% on room air. At this time patient will be admitted patient started on IV kefzol. Vascular and infectious disease services will be consulted. Blood culture ordered On 08/22/2022 patient is alert and oriented 3. Patient having some nausea Zofran ordered. Awaiting vascular consult ultrasound of lower extremity is ordered. Patient denies chest pain or shortness breath. Patient denies any urinary burning or frequency. Patient remains on IV antibiotics. On 08/23/2022 patient was seen and examined on the medical floor, she is alert and oriented 3 she is complaining of pain in her right foot otherwise she denies any complaints there is no fever or chills no headache or dizziness, no chest pain no shortness of breath no cough no nausea or vomiting no abdominal pain no diarrhea no blood in the stools, no burning with urination no frequency or urgency no hematuria, patient is followed by infectious disease and vascular surgery. Continue with current management will follow closely. On 08/24/2022 patient is alert and oriented 3 patient is complaining of some shortness of breath. Will order chest x-ray. Tentative plans for amputation per vascular surgery. Current vital signs temp 97.8, heart rate 61, straight 17, blood pressure 91/51 with pulse ox 97% On 08/25/2022 patient was seen and examined on the medical floor she is alert and oriented 3 in no apparent distress she is still complaining of right foot pain otherwise she denies any complaints, there is no fever or chills no headache or dizziness no chest pain no shortness of breath no cough no nausea or vomiting no abdominal pain no diarrhea and no urinary symptoms. Vascular surgery are planning for right lower extremity bypass surgery and amputation of the right external, patient is maintained on IV antibiotic and is followed by infectious disease. Will recheck in a.m.. Objective - Vital Signs Vital signs: Vital Signs Temp 98.7 F 08/25/22 12:56 Pulse 60 08/25/22 12:56 Resp 15 08/25/22 12:56 BP 126/68 08/25/22 12:56 Pulse Ox 96 08/25/22 12:56 FiO2 Intake & Output 08/24/22 08/25/22 08/25/22 18:59 06:59 18:59 Intake Total 100 350 Balance 100 350 Weight 58.513 kg Intake: Intake, IV Titration 100 Amount ceFAZolin 2 gm In Sodium 100 Chloride 0.9% 50 ml @ 100 mls/hr IVPB Q8HR [facility] Rx# :[id number] Oral 350 Other: # Voids 1 1 - Exam In general patient is alert and oriented 3 in no distress Head normocephalic and atraumatic Neck supple no JVD no goiter Lungs clear to auscultation bilaterally no wheezing or crackles Heart regular rate and rhythm S1-S2, no rub or gallop Abdomen is soft nontender nondistended positive bowel sounds no hepatosplenomegaly Extremities no edema. Right greater toe along with second and third digit gangrenous Neuro no gross focal deficits - Labs CBC & Chem 7: 08/25/22 06:11 08/25/22 06:11 Labs: Abnormal Lab Results - Last 24 Hours (Table) 08/25/22 08/25/22 Range/Units 06:11 06:11 RBC 3.42 L (3.80-5.40) m/uL Hgb 10.7 L (11.4-16.0) gm/dL Hct 32.9 L (34.0-46.0) % Sodium 135 L (137-145) mmol/L Chloride 97 L (98-107) mmol/L Carbon Dioxide 31 H (22-30) mmol/L AST 46 H (14-36) U/L Alkaline Phosphatase 141 H (38-126) U/L Albumin 3.2 L (3.5-5.0) g/dL Microbiology - Last 24 Hours (Table) 08/21/22 13:05 Blood Culture - Preliminary Blood 08/21/22 13:05 Blood Culture - Preliminary Blood Assessment and Plan Assessment: 1. 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 2. History of peripheral arterial disease 3. Ex-smoker 4. History of COPD 5. History of hyperlipidemia 6. History of essential hypertension 7. History of pneumonia DVT prophylaxis SCDs due to possible surgical procedure and GI prophylaxis Protonix Maintained on IV antibiotics Vascular and infectious disease service is consulted blood Culture and repeat labs ordered
[2022-08-25] MEDS: MULTIVITAMINS, THERA 1 EACH TAB PO SCH (17:56)
[2022-08-25] MEDS: IPRATROPIUM-ALBUTEROL 3 ML NEB INHALATION PRN (20:03)
[2022-08-25] MEDS: ATORVASTATIN 40 MG TAB PO SCH (20:46)
[2022-08-26] MEDS: HYDROcodone/APAP 5-325MG 1 EACH TAB PO PRN ×2 (00:17→05:49)
[2022-08-26 02:01] VITALS: RESP 15
[2022-08-26] MEDS: ALPRAZolam 0.25 MG TAB PO PRN ×2 (05:49→14:01)
[2022-08-26] MEDS: ASPIRIN 81 MG PO SCH (09:02)
[2022-08-26] MEDS: PANTOPRAZOLE 40 MG TABLET PO SCH (09:03)
[2022-08-26] MEDS: METOCLOPRAMIDE 10 MG TAB PO SCH (09:03)
[2022-08-26] MEDS: LOSARTAN 50 MG TAB PO SCH (09:04)
[2022-08-26] MEDS: hydroCHLOROthiazide 12.5 MG CAP PO SCH (09:04)
[2022-08-26] MEDS: ENOXAPARIN 40 MG/0.4 ML SYRINGE SQ SCH (09:05)
--- NOTE | 2022-08-26 09:06 | P.PN ---
Subjective Progress Note Date: 08/26/22 Principal diagnosis: Dry gangrene, peripheral arterial disease Patient is seen and examined sitting up in bed. She remains on IV antibiotics recommended by infectious disease. Right great toe with dry gangrene, no drainage, no odor. She denies any pain in her lower extremities other than her great toe with palpation. She has been afebrile. She denies any chest pain, shortness of breath, abdominal pain, nausea, vomiting, fevers or chills. She is unsure why she is still in the hospital. Objective - Vital Signs Vital signs: Vital Signs Temp 97.8 F 08/26/22 07:08 Pulse 60 08/26/22 07:08 Resp 15 08/26/22 07:08 BP 141/67 08/26/22 07:08 Pulse Ox 95 08/26/22 07:08 FiO2 Intake & Output 08/25/22 08/26/22 08/26/22 18:59 06:59 18:59 Intake Total 100 120 Balance 100 120 Weight 58.513 kg Intake: Intake, IV Titration 100 Amount ceFAZolin 2 gm In Sodium 100 Chloride 0.9% 50 ml @ 100 mls/hr IVPB Q8HR [facility] Rx# :[id number] Oral 120 Other: # Voids 1 2 - Exam General appearance: The patient is alert, oriented, appears in no acute distress. HET: Head is normocephalic and atraumatic. Pupils are equal and reactive. Neck: Supple. Heart: Regular. Lungs: Equal expansion, normal respiratory effort. Abdomen: Soft, nontender, nondistended. Extremities: Bilateral nonpalpable DP and PT pulses. Right great toe with dry gangrene at the distal aspect. Palpable bilateral femoral pulses. Neurological: No focal deficits. - Labs CBC & Chem 7: 08/25/22 06:11 08/25/22 06:11 Labs: Microbiology - Last 24 Hours (Table) 08/21/22 13:05 Blood Culture - Preliminary Blood 08/21/22 13:05 Blood Culture - Preliminary Blood Assessment and Plan Assessment: 1. 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 Right lower extremity critical limb ischemia with right great toe dry gangrene Plan: CTA with runoff reviewed showing chronic appearing occlusion of the distal popliteal artery on the right and chronic occlusive disease of tibial arteries. Recommend outpatient angiogram and revascularization of the right popliteal artery and anterior tibial artery to improve better flow to the foot. Allow right great toe to demarcate however will likely require amputation in the future. Encourage ambulation. Rest of medical management per primary medical physician. Patient is cleared from vascular surgery for discharge. Thank you for this consultation. The impression and plan of care has been dictated as directed. I performed a history and examination of this patient, discussed the same with the dictator. I agree with the dictator's note ,documented as a scribe. Any additional findings or plans will be noted.
[2022-08-26] MEDS: FORMOTEROL FUMARATE 20 MCG/2 ML NEBU INHALATION SCH (09:58)
[2022-08-26] MEDS: IPRATROPIUM-ALBUTEROL 3 ML NEB INHALATION PRN (09:58)
[2022-08-26 12:39] VITALS: BP 113/67; PULSE 62; TEMP 98
[2022-08-26] MEDS: MAGNESIUM OXIDE 400 MG TAB PO SCH (14:01)
--- NOTE | 2022-08-31 16:25 | P.PN ---
Subjective Progress Note Date: 08/24/22 Principal diagnosis: R big toe Gangrene and cellulitis Patient is a 77-year-old female with multiple comorbidities presenting to the hospital with right big toe discoloration concerning for gangrene and possible cellulitis. On today's evaluation that is 08/24/2022 the patient remains to be afebrile, patient is breathing comfortably on room air, the patient denies chest pain or shortness of the patient cough no abdominal pain and no worsening pain to the right big toe Objective - Vital Signs Vital signs: Vital Signs Temp 98.4 F 08/24/22 13:44 Pulse 69 08/24/22 13:44 Resp 16 08/24/22 13:44 BP 108/62 08/24/22 13:44 Pulse Ox 93 L 08/24/22 13:44 FiO2 Intake & Output 08/23/22 08/24/22 08/24/22 18:59 06:59 18:59 Intake Total 50 Balance 50 Intake: Intake, IV Titration 50 Amount ceFAZolin 2 gm In Sodium 50 Chloride 0.9% 50 ml @ 100 mls/hr IVPB Q8HR [facility] Rx# :[id number] Other: # Voids 2 1 - Exam GENERAL DESCRIPTION: An elderly female lying in bed in no distress RESPIRATORY SYSTEM: Unlabored breathing , decreased breath sounds at bases HEART: S1 S2 regular rate and rhythm , ABDOMEN: Soft , no tenderness EXTREMITIES: Right big toe tip with necrotic changes minimal surrounding redness - Labs CBC & Chem 7: 08/25/22 06:11 08/25/22 06:11 Labs: Microbiology - Last 24 Hours (Table) 08/21/22 13:05 Blood Culture - Preliminary Blood 08/21/22 13:05 Blood Culture - Preliminary Blood Assessment and Plan (1) Gangrene of toe of right foot Status: Acute Code(s): I96 - GANGRENE, NOT ELSEWHERE CLASSIFIED SNOMED Code(s): 02493043184167547 Plan: 1patient was in the hospital with discoloration to the right big toe concerning for gangrene with mild erythema and possible component of cellulitis likely from gram-positive skin artem 2-Pt has been evaluated by vascular surgery and workup is in progress 3-patient to continue with cefazolin 2 g every 8 hours for the component of cellulitis Time with Patient: Less than 30
--- NOTE | 2022-08-31 16:26 | P.PN ---
Subjective Progress Note Date: 08/25/22 Principal diagnosis: R big toe Gangrene and cellulitis Patient is a 77-year-old female with multiple comorbidities presenting to the hospital with right big toe discoloration concerning for gangrene and possible cellulitis. On today's evaluation that is 08/25/2022 the patient continues to be afebrile, patient is breathing comfortably on room air, the patient denies chest pain or shortness of the patient cough, the patient denies having any nausea no vomiting no abdominal pain and pain to the right big toe is controlled Objective - Vital Signs Vital signs: Vital Signs Temp 97.5 F L 08/25/22 07:20 Pulse 68 08/25/22 08:46 Resp 15 08/25/22 07:20 BP 137/77 08/25/22 07:20 Pulse Ox 96 08/25/22 07:20 FiO2 Intake & Output 08/24/22 08/25/22 08/25/22 18:59 06:59 18:59 Intake Total 100 350 Balance 100 350 Intake: Intake, IV Titration 100 Amount ceFAZolin 2 gm In Sodium 100 Chloride 0.9% 50 ml @ 100 mls/hr IVPB Q8HR [facility] Rx# :[id number] Oral 350 Other: # Voids 1 1 - Exam GENERAL DESCRIPTION: An elderly female lying in bed in no distress RESPIRATORY SYSTEM: Unlabored breathing , decreased breath sounds at bases HEART: S1 S2 regular rate and rhythm , ABDOMEN: Soft , no tenderness EXTREMITIES: Right big toe tip with necrotic changes minimal surrounding redness - Labs CBC & Chem 7: 08/25/22 06:11 08/25/22 06:11 Labs: Abnormal Lab Results - Last 24 Hours (Table) 08/25/22 08/25/22 Range/Units 06:11 06:11 RBC 3.42 L (3.80-5.40) m/uL Hgb 10.7 L (11.4-16.0) gm/dL Hct 32.9 L (34.0-46.0) % Sodium 135 L (137-145) mmol/L Chloride 97 L (98-107) mmol/L Carbon Dioxide 31 H (22-30) mmol/L AST 46 H (14-36) U/L Alkaline Phosphatase 141 H (38-126) U/L Albumin 3.2 L (3.5-5.0) g/dL Microbiology - Last 24 Hours (Table) 08/21/22 13:05 Blood Culture - Preliminary Blood 08/21/22 13:05 Blood Culture - Preliminary Blood Assessment and Plan (1) Gangrene of toe of right foot Status: Acute Code(s): I96 - GANGRENE, NOT ELSEWHERE CLASSIFIED SNOMED Code(s): 26565990976371971 Plan: 1patient was in the hospital with discoloration to the right big toe concerning for gangrene with mild erythema and possible component of cellulitis likely from gram-positive skin artem 2-Pt has been evaluated by vascular surgery and workup is in progress 3-patient currently being treated with cefazolin 2 g every 8 hours for the component of cellulitis, to continue while inpatient Time with Patient: Less than 30
--- NOTE | 2022-08-31 16:28 | P.PN ---
Subjective Progress Note Date: 08/26/22 Principal diagnosis: R big toe Gangrene and cellulitis Patient is a 77-year-old female with multiple comorbidities presenting to the hospital with right big toe discoloration concerning for gangrene and possible cellulitis. On today's evaluation that is 08/26/2022 the patient denies any fever or any chills, patient is breathing comfortably on room air, the patient denies chest pain or shortness of the patient cough, the patient denies having any nausea no vomiting no abdominal pain, the patient denies significant pain to the right big toe Objective - Vital Signs Vital signs: Vital Signs Temp 97.8 F 08/26/22 07:08 Pulse 64 08/26/22 10:26 Resp 15 08/26/22 07:08 BP 141/67 08/26/22 07:08 Pulse Ox 95 08/26/22 07:08 FiO2 Intake & Output 08/25/22 08/26/22 08/26/22 18:59 06:59 18:59 Intake Total 100 120 Balance 100 120 Weight 58.513 kg Intake: Intake, IV Titration 100 Amount ceFAZolin 2 gm In Sodium 100 Chloride 0.9% 50 ml @ 100 mls/hr IVPB Q8HR [facility] Rx# :[id number] Oral 120 Other: # Voids 1 2 - Exam GENERAL DESCRIPTION: An elderly female lying in bed in no distress RESPIRATORY SYSTEM: Unlabored breathing , decreased breath sounds at bases HEART: S1 S2 regular rate and rhythm , ABDOMEN: Soft , no tenderness EXTREMITIES: Right big toe tip with necrotic changes minimal surrounding redness - Labs CBC & Chem 7: 08/25/22 06:11 08/25/22 06:11 Labs: Microbiology - Last 24 Hours (Table) 08/21/22 13:05 Blood Culture - Preliminary Blood 08/21/22 13:05 Blood Culture - Preliminary Blood Assessment and Plan (1) Gangrene of toe of right foot Status: Acute Code(s): I96 - GANGRENE, NOT ELSEWHERE CLASSIFIED SNOMED Code(s): 13518456694160951 Plan: 1patient was in the hospital with discoloration to the right big toe concerning for gangrene with mild erythema and possible component of cellulitis likely from gram-positive skin artem 2-Pt has been evaluated by vascular surgery and planning for outpatient angiogram waiting for demarcation before amputation of the right big toe 3-patient will be given a short course of oral Keflex on discharge discussed with the admitting physician working on discharge Time with Patient: Less than 30
--- NOTE | 2022-09-02 12:04 | US ---
EXAMINATION TYPE: US arterial LE multi level Exam done portable DATE OF EXAM: 08/22/2022 8:10 AM CLINICAL INDICATION: Female, 77 years old with history of gangrene toe right foot; History of: Smoker: previous Hypertension: yes Diabetic: no Hyperlipidemia: yes TIA/CVA: no Previous Vascular Surgery: no LA: no Gangrene: right Right Brachial Pressure: 111 Left Brachial Pressure: deferred due to IV Ankle-Brachial Indices: Right: 0.45 Left: 0.98 IMPRESSION: 1. Severe atherosclerotic disease with the most marked findings involving the right infrapopliteal re gion with severe vascular occlusive disease suspected. 2. Moderate left-sided atherosclerotic disease.
--- NOTE | 2022-09-03 11:07 | P.DS ---
Providers Date of admission: 08/21/22 14:49 Expected date of discharge: 08/26/22 Attending physician: Bret Garcia Consults: 08/21/22 14:13 Consult Physician Urgent Consulting Provider: Vesta Platt Consult Reason/Comments: Gangrene, PAD Do you want consulting provider notified?: Yes 08/22/22 09:23 Consult Physician Routine Consulting Provider: Graciela Zeng Consult Reason/Comments: gangerous toe Do you want consulting provider notified?: Yes Primary care physician: Yajaira Freeman Hospital Course: Diagnosis on discharge: 1. 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 2. History of peripheral arterial disease 3. Ex-smoker 4. History of COPD 5. History of hyperlipidemia 6. History of essential hypertension 7. History of pneumonia Hospital course: Leanne Good, is a 77-year-old female patient of Dr. Freeman who presented from her [employer] office with concerns of increased gangrene to right greater toe. Patient has reported that she's been dealing with issues with her foot for some time but has increased to her second and third toe over the past few months. Patient has past medical history of ex-smoker, COPD, hyperlipidemia, hypertension and pneumonia. Chest x-ray completed showing no acute cardiopulmonary disease COPD changes. Foot x-ray completed showing no evidence of acute fracture no evidence of osseous erosion to suggest osteomyelitis. Current vital signs temp 97.8, heart rate 59, respiratory 18, blood pressure 108/56 with pulse ox 93% on room air. At this time patient will be admitted patient started on IV kefzol. Vascular and infectious disease services will be consulted. Blood culture ordered On 08/22/2022 patient is alert and oriented 3. Patient having some nausea Zofran ordered. Awaiting vascular consult ultrasound of lower extremity is ordered. Patient denies chest pain or shortness breath. Patient denies any urinary burning or frequency. Patient remains on IV antibiotics. On 08/23/2022 patient was seen and examined on the medical floor, she is alert and oriented 3 she is complaining of pain in her right foot otherwise she denies any complaints there is no fever or chills no headache or dizziness, no chest pain no shortness of breath no cough no nausea or vomiting no abdominal pain no diarrhea no blood in the stools, no burning with urination no frequency or urgency no hematuria, patient is followed by infectious disease and vascular surgery. Continue with current management will follow closely. On 08/24/2022 patient is alert and oriented 3 patient is complaining of some shortness of breath. Will order chest x-ray. Tentative plans for amputation per vascular surgery. Current vital signs temp 97.8, heart rate 61, straight 17, blood pressure 91/51 with pulse ox 97% On 08/25/2022 patient was seen and examined on the medical floor she is alert and oriented 3 in no apparent distress she is still complaining of right foot pain otherwise she denies any complaints, there is no fever or chills no headache or dizziness no chest pain no shortness of breath no cough no nausea or vomiting no abdominal pain no diarrhea and no urinary symptoms. Vascular surgery are planning for right lower extremity bypass surgery and amputation of the right external, patient is maintained on IV antibiotic and is followed by infectious disease. Will recheck in a.m.. Patient was evaluated by vascular surgery recommendations for outpatient angiogram and revascularization of the right popliteal artery and anterior tibial artery to improve flow. Per vascular surgery on right great toe to demarcate will likely require amputation for discharge from vascular standpoint will be DC'd on IV antibiotics patient follow-up outpatient for further tayo watts Patient Condition at Discharge: Stable Plan - Discharge Summary Discharge Rx Participant: No New Discharge Prescriptions: New HYDROcodone/APAP 5-325MG [[place] 5-325] 1 each PO Q4HR PRN tab PRN Reason: Moderate Pain (Scale 4 To 6) Aspirin 81 mg PO DAILY tab Cephalexin [Keflex] 500 mg PO Q8HR 1 Days #3 cap Continue Albuterol Sulfate [Albuterol Sulfate Hfa] 1 puff PO RT-Q4H PRN PRN Reason: Shortness Of Breath Albuterol Nebulized [Ventolin Nebulized] 2.5 mg INHALATION RT-Q6H PRN PRN Reason: Shortness Of Breath rOPINIRole HCL [Requip] 1 mg PO HS Metoclopramide [Reglan] 10 mg PO AC-BID Magnesium Oxide [Mag-Ox] 400 mg PO DAILY@1200 rOPINIRole HCL [Requip] 0.5 mg PO DAILY Umeclidinium Brm/Vilanterol Tr [Anoro Ellipta 62.5-25 Mcg INH] 1 puff INHALATION RT-DAILY PRN PRN Reason: Cough ALPRAZolam [Xanax] 0.25 mg PO BID PRN PRN Reason: Anxiety Ondansetron Odt [Zofran ODT] 4 mg PO Q6H PRN PRN Reason: Nausea Rosuvastatin [Crestor] 20 mg PO HS Mv-Min/Folic/Vit K/Lut/[id number] [Alive Women's 50 Plus Tablet] 1 tab PO AC- SUPPER Omeprazole [PriLOSEC] 40 mg PO DAILY Losartan/Hydrochlorothiazide [Hyzaar 100-12.5 Tablet] 1 tab PO DAILY Discharge Medication List ALPRAZolam [Xanax] 0.25 mg PO BID PRN 08/21/22 [History] Albuterol Nebulized [Ventolin Nebulized] 2.5 mg INHALATION RT-Q6H PRN 08/21/22 [History] Albuterol Sulfate [Albuterol Sulfate Hfa] 1 puff PO RT-Q4H PRN 08/21/22 [History] Losartan/Hydrochlorothiazide [Hyzaar 100-12.5 Tablet] 1 tab PO DAILY 08/21/22 [History] Magnesium Oxide [Mag-Ox] 400 mg PO DAILY@1200 08/21/22 [History] Metoclopramide [Reglan] 10 mg PO AC-BID 08/21/22 [History] Mv-Min/Folic/Vit K/Lut/Xusb690 [Alive Women's 50 Plus Tablet] 1 tab PO AC-SUPPER 08/21/22 [History] Omeprazole [PriLOSEC] 40 mg PO DAILY 08/21/22 [History] Ondansetron Odt [Zofran ODT] 4 mg PO Q6H PRN 08/21/22 [History] Rosuvastatin [Crestor] 20 mg PO HS 08/21/22 [History] Umeclidinium Brm/Vilanterol Tr [Anoro Ellipta 62.5-25 Mcg INH] 1 puff INHALATION RT-DAILY PRN 08/21/22 [History] rOPINIRole HCL [Requip] 0.5 mg PO DAILY 08/21/22 [History] rOPINIRole HCL [Requip] 1 mg PO HS 08/21/22 [History] Aspirin 81 mg PO DAILY tab 08/26/22 [Rx] Cephalexin [Keflex] 500 mg PO Q8HR 1 Days #3 cap 08/26/22 [Rx] HYDROcodone/APAP 5-325MG [[place] 5-325] 1 each PO Q4HR PRN tab 08/26/22 [Rx] Follow up Appointment(s)/Referral(s): Yajaira Freeman MD [Primary Care Provider] - 08/27/22 3:00 pm Steve Smith DO [Doctor of Osteopathic Medicine] - 09/11/22 12:00 pm Patient Instructions/Handouts: Angiogram (DC), Gangrene (DC) Discharge Disposition: HOME SELF-CARE
== END 2022-08-26 15:34 | disposition home or self-care (01) | DRG 301 ==
LOC: EC 12:24 → 5NMEDONC 14:49
PROVIDERS: ADMIT Internal Medicine; ATTEND Internal Medicine
DX: I70.261 Atherosclerosis of native arteries of extremities with gangrene, right leg (principal); G20 Parkinson's disease; J44.9 Chronic obstructive pulmonary disease, unspecified; L03.031 Cellulitis of right toe; Z28.310 Unvaccinated for COVID-19; I10 Essential (primary) hypertension; E78.5 Hyperlipidemia, unspecified; F41.9 Anxiety disorder, unspecified; Z79.899 Other long term (current) drug therapy; Z87.891 Personal history of nicotine dependence; Z96.641 Presence of right artificial hip joint; Z87.01 Personal history of pneumonia (recurrent)
CPT/HCPCS: 36415; 71046; 71275; 75635; 80053; 83605; 83735; 85025; 85610; 85652; 85730; 86140; 87040; 93923; 94640; 96365; 96375; 99284

== ENCOUNTER 2022-10-06 05:42 | Day surgery (SDC) | payer MEDICARE ==
[2022-10-01 11:06] VITALS: BMI 19.0
[2022-10-06] MEDS ORDERED: ALPRAZolam 0.25 MG TAB PO PRN (05:52)
[2022-10-06] MEDS ORDERED: SODIUM CHLORIDE 0.9% 1,000 ML in EMPTY BAG 1 BAG IV ONE (05:52)
[2022-10-06] MEDS ORDERED: ASPIRIN 325 MG TAB PO PRN (05:52)
[2022-10-06] MEDS ORDERED: SODIUM CHLORIDE 0.9% 1,000 ML IV ONE (06:13)
[2022-10-06 06:29] VITALS: RESP 16; TEMP 98
[2022-10-06 06:56] LABS: African American GFR (CKD) 79 (>60 ml/min/1.73 sqM); Anion Gap 8 mmol/L; Blood Urea Nitrogen 13 mg/dL (7-17); Carbon Dioxide 28 mmol/L (22-30); Chloride 99 mmol/L (98-107); Glucose 96 mg/dL (74-99); Non-African American GFR(CKD) 68 (>60 ml/min/1.73 sqM); Potassium 4.3 mmol/L (3.5-5.1); Sodium 135 mmol/L (137-145)
[2022-10-06 07:07] LABS: HCT 35.8 % (34.0-46.0); HGB 12.1 gm/dL (11.4-16.0); MCH 31.6 pg (25.0-35.0); MCHC 33.9 g/dL (31.0-37.0); MCV 93.3 fL (80.0-100.0); Mean Platelet Volume 8.2; Platelet Count 459 k/uL (150-450); RBC 3.83 m/uL (3.80-5.40); RDW 13.6 % (11.5-15.5); WBC 11.6 k/uL (3.8-10.6)
[2022-10-06] MEDS ORDERED: LIDOCAINE 1% INJ 10MG/ML (20 ML MDV) ONE (07:39)
[2022-10-06] MEDS ORDERED: fentaNYL (PF) 50 MCG/ML 2 ML AMP ONE (07:46)
[2022-10-06] MEDS ORDERED: LIDOCAINE 1% INJ 10MG/ML (30 ML VIAL-PF) SQ ONE (07:51)
[2022-10-06] MEDS ORDERED: fentaNYL (PF) 50 MCG/1 ML VIAL IVP ONE ×3 (07:56)
[2022-10-06] MEDS ORDERED: MIDAZOLAM 2 MG/2 ML VIAL IVP ONE (07:56)
[2022-10-06 08:07] LABS: Band Neutrophils % 1 %; Basophils # (M) 0.12 k/uL (0-0.2); Eosinophils # (M) 3.13 k/uL (0-0.7); Lymphocytes # (M) 2.32 k/uL (1.0-4.8); Monocytes # (M) 1.16 k/uL (0-1.0); Neutrophils % (M) 42 %; Nucleated Red Blood Cells 0 /100 WBC (0-0); Total Cells Counted 200
[2022-10-06 08:08] LABS: RBC Morphology Normal
[2022-10-06] MEDS ORDERED: IOPAMIDOL-250 100ML BTL INTRAARTER ONE (08:43)
--- NOTE | 2022-10-06 08:53 | IR ---
EXAMINATION TYPE: IR bell captain femoral popliteal DATE OF EXAM: 10/06/2022 COMPARISON: NONE HISTORY: Fluoroscopy time. Fluoroscopy was provided to the referring clinician.
--- NOTE | 2022-10-06 08:59 | P.OP ---
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 Postoperative Diagnosis: Same plus occlusion right anterior tibial artery and peroneal arteries. Procedure(s) Performed: 1: Ultrasound guided cannulation left common femoral artery. 2: Abdominal aortogram. 3: Selective catheterization right superficial femoral artery. 4: Right femoral angiogram. 5: Balloon dilation right popliteal artery with drug-eluting balloon. Anesthesia: local (2% Xylocaine with 1 mg of Versed and a total of 100 g of fentanyl for moderate conscious sedation administered intravenously.) Surgeon: Steve Smith Estimated Blood Loss (ml): 15 Urine output (ml): 0 Pathology: none sent Condition: stable Disposition: no change Indications for Procedure: Indications: Patient is a 77-year-old female who presented with a gangrenous changes of her right great toe. Physical examination revealed femoral pulses be intact while the needles were absent as well as the popliteal distally. CT angiogram demonstrated a popliteal artery occlusion. Patient is now offered percutaneous intervention. The procedure, risk and benefits were discussed. All questions were answered to patient's satisfaction. Consent form was signed. Description of Procedure: Patient is brought to the interventional suite. Both the left and right groins were sterilely prepped and draped in usual manner. Patient did receive intravenously administered both fentanyl and Versed for moderate conscious sedation purposes. 2% Xylocaine was utilized for local anesthesia tissues overlying the left common femoral artery. Through this anesthetized area and with the aid of ultrasound a multipurpose needle was utilized candidate the artery. Once cannulated Softip guidewire is advanced into the artery. The needle was withdrawn and a 6-[place] sheath was placed over the guidewire. 5-[place] Omni Flush catheter and guidewire were advanced into the abdominal aorta and the catheter was positioned at the L1-L2 interspace. Abdominal aortogram was performed. Subsequently the cath was manipulated across the aortic bifurcation and the guidewire is advanced into the superficial femoral artery. The pigtail was then exchanged for a 6-[place] up and over sheath. Angled glide catheter was advanced over the guidewire into the superficial femoral artery. Guidewire was withdrawn and right femoral angiogram was performed. This demonstrated popliteal artery occlusion. Under roadmapping guidance catheter and guidewire combinations were utilized to cross the lesion and the guidewire was advanced into the distal popliteal arterial segment. The guidewire was withdrawn and angiography confirmed intraluminal position. Findings abdominal aortogram: Single renal arteries are identified bilaterally without evidence of significant stenosis. No significant aortic occlusive disease is identified. Left iliac angiography demonstrates the common and external as well as internal segments to be patent. Approximate 40% stenosis of the common is identified. Right iliac angiography demonstrates the common external and internal segments to be patent with no significant stenosis identified. Right femoral angiography demonstrates the common and profundus as well as the superficial arterial segments to be patent. Significant collateralization is identified throughout suggesting long standing occlusion. The distal SFA at the popliteal level occludes. This occlusion extends across the entirety of the proximal and mid segments of the popliteal artery. The distal popliteal artery fills via collateral flow. The origins of the anterior tibial posterior tibial and peroneal arterial segments are patent. With the above findings noted of was decided to perform balloon dilation. A 5 mm x 60 mm drug-eluting balloon was selected. The lung catheter was advanced over the guidewire into the occluded popliteal segment and balloon dilation was performed for 2 minutes. Completion angiography demonstrated previously occluded segment now to be patent with a tapered stenosis at the very distal segment of the popliteal artery. A 4 mm balloon antroplasty catheter was utilized then to balloon this segment and completion angiogram demonstrated entire segment now to be widely patent with no flow-limiting lesion noted. Tibial angiography was then performed. This demonstrated occlusion of the peroneal and anterior tibial arteries with intermittent segments. The posterior tibial artery is patent and crosses the ankle mortise and feeds the deep plantar circulation. With the above findings noted, and no further intervention thought necessary the sheath was withdrawn and the puncture closed with a Angio-Seal device. Patient tolerated the procedure well and was taken the recovery area satisfactory and stable condition. Total contrast volume: 40 ML's. Total conscious sedation time: 48 minutes. Total fluoroscopy time: 6.2 minutes. Plan - Discharge Summary Discharge Rx Participant: No New Discharge Prescriptions: No Action Albuterol Sulfate [Albuterol Sulfate Hfa] 1 puff PO Q4H PRN PRN Reason: Shortness Of Breath Albuterol Nebulized [Ventolin Nebulized] 2.5 mg INHALATION Q6H PRN PRN Reason: Shortness Of Breath rOPINIRole HCL [Requip] 1 mg PO HS Metoclopramide [Reglan] 10 mg PO AC-BID Magnesium Oxide [Mag-Ox] 400 mg PO DAILY@1200 rOPINIRole HCL [Requip] 0.5 mg PO DAILY Oxycontin (Unknown Dose) 5 mg PO DIRECTED PRN PRN Reason: Pain Umeclidinium Brm/Vilanterol Tr [Anoro Ellipta 62.5-25 Mcg INH] 1 puff INHALATION DAILY PRN PRN Reason: Cough ALPRAZolam [Xanax] 0.25 mg PO BID PRN PRN Reason: Anxiety Ondansetron Odt [Zofran ODT] 4 mg PO Q6H PRN PRN Reason: Nausea Rosuvastatin [Crestor] 20 mg PO HS Mv-Min/Folic/Vit K/Lut/[id number] [Alive Women's 50 Plus Tablet] 1 tab PO AC- SUPPER Omeprazole [PriLOSEC] 40 mg PO DAILY Losartan/Hydrochlorothiazide [Hyzaar 100-12.5 Tablet] 1 tab PO DAILY Aspirin 81 mg PO DAILY tab Discharge Medication List ALPRAZolam [Xanax] 0.25 mg PO BID PRN 08/21/22 [History] Albuterol Nebulized [Ventolin Nebulized] 2.5 mg INHALATION Q6H PRN 08/21/22 [History] Albuterol Sulfate [Albuterol Sulfate Hfa] 1 puff PO Q4H PRN 08/21/22 [History] Losartan/Hydrochlorothiazide [Hyzaar 100-12.5 Tablet] 1 tab PO DAILY 08/21/22 [History] Magnesium Oxide [Mag-Ox] 400 mg PO DAILY@1200 08/21/22 [History] Metoclopramide [Reglan] 10 mg PO AC-BID 08/21/22 [History] Mv-Min/Folic/Vit K/Lut/[id number] [Alive Women's 50 Plus Tablet] 1 tab PO AC-SUPPER 08/21/22 [History] Omeprazole [PriLOSEC] 40 mg PO DAILY 08/21/22 [History] Ondansetron Odt [Zofran ODT] 4 mg PO Q6H PRN 08/21/22 [History] Rosuvastatin [Crestor] 20 mg PO HS 08/21/22 [History] Umeclidinium Brm/Vilanterol Tr [Anoro Ellipta 62.5-25 Mcg INH] 1 puff INHALATION DAILY PRN 08/21/22 [History] rOPINIRole HCL [Requip] 0.5 mg PO DAILY 08/21/22 [History] rOPINIRole HCL [Requip] 1 mg PO HS 08/21/22 [History] Aspirin 81 mg PO DAILY tab 08/26/22 [Rx] Oxycontin (Unknown Dose) 5 mg PO DIRECTED PRN 10/01/22 [History] Follow up Appointment(s)/Referral(s): Steve Smith DO [Doctor of Osteopathic Medicine] - 10/16/22 9:00 am (FOLLOW UP APPOINTMENT IS ON September AT 9:00 am) Patient Instructions/Handouts: Peripheral Vascular Disease (ED), Moderate Sedation (DC), Peripheral Vascular Angioplasty (DC) Activity/Diet/Wound Care/Special Instructions: *NO LIFTING, PUSHING, OR PULLING ANYTHING OVER 5 POUNDS FOR 5 DAYS *NO DRIVING FOR 3 DAYS *YOU CAN REMOVE YOUR DRESSING AND SHOWER TOMORROW BUT DO NOT SUBMERSE YOUR PUNCTURE SITE IN WATER FOR A FEW DAYS TO PREVENT INFECTION - SO NO TUB BATHS, POOLS, HOT TUBS, DISHES...ETC *ANY SIGNS OF BLEEDING (HARDNESS, SWELLING, OR EXCESSIVE BRUISING) HOLD DIRECT PRESSURE ON YOUR PUNCTURE SITE AND COME TO THE NEAREST EMERGENCY ROOM TO GET YOUR PUNCTURE SITE LOOKED AT - DO NOT DRIVE YOURSELF! EITHER CALL EMS OR HAVE SOMEONE DRIVE YOU!
[2022-10-06 11:41] VITALS: BP 173/89
[2022-10-06 13:30] VITALS: PULSE 63
== END 2022-10-06 12:32 | disposition home or self-care (01) ==
LOC: CATHCVL 05:42
PROVIDERS: ATTEND Surgery
DX: I70.261 Atherosclerosis of native arteries of extremities with gangrene, right leg (principal); I10 Essential (primary) hypertension; E78.5 Hyperlipidemia, unspecified; F17.200 Nicotine dependence, unspecified, uncomplicated; Z79.82 Long term (current) use of aspirin; Z79.51 Long term (current) use of inhaled steroids; Z79.899 Other long term (current) drug therapy
CPT/HCPCS: 37224; 99152 ×2; 99153; 80048; 85025; C1894 ×2; C1769 ×5; C1760; C1725; C2623; J2250; J2001; Q9966; J3010